=== PATIENT | male | born 1930 | race Caucasian/White ===

== ENCOUNTER → 2018-04-04 | Outpatient (CLI) | payer MEDICARE, BC | END | disposition home or self-care (01) | LOC: LABMAIN 14:20 | PROVIDERS: ATTEND Orthopaedic Surgery | DX: Z01.812 Encounter for preprocedural laboratory examination (principal); Z53.9 Procedure and treatment not carried out, unspecified reason ==

== ENCOUNTER → 2018-04-06 | Outpatient (CLI) | payer MEDICARE, BC | END | disposition home or self-care (01) | LOC: LABPAT 11:20 | PROVIDERS: ATTEND Orthopaedic Surgery | DX: Z01.812 Encounter for preprocedural laboratory examination (principal) | CPT/HCPCS: 87070 ==

== ENCOUNTER → 2018-04-09 | Outpatient (CLI) | payer MEDICARE, BC ==
[2018-04-09 11:07] LABS: Appearance,Urine Clear (Clear); Bilirubin,Urine Negative (Negative); Blood,Urine Negative (Negative); Color,Urine Yellow; Glucose,Urine (UA) Negative (Negative); Ketones,Urine Negative (Negative); Leukocyte Esterase,Urine Negative (Negative); Nitrite,Urine Negative (Negative); PH, Urine 5.5 (5.0-8.0); Protein,Urine Negative (Negative); Urobilinogen,Urine <2.0 mg/dL (<2.0)
[2018-04-09 11:08] LABS: Prothrombin Time 18.4 sec (9.0-12.0)
[2018-04-09 11:14] LABS: HCT 39.6 % (39.0-53.0); HGB 12.5 gm/dL (13.0-17.5); MCH 31.8 pg (25.0-35.0); MCHC 31.7 g/dL (31.0-37.0); MCV 100.4 fL (80.0-100.0); Macrocytosis Slight; Mean Platelet Volume 8.3; Platelet Count 200 k/uL (150-450); RBC 3.94 m/uL (4.30-5.90); RDW 14.4 % (11.5-15.5); WBC 7.1 k/uL (3.8-10.6)
[2018-04-09 11:19] LABS: Albumin 3.7 g/dL (3.5-5.0); Calcium 8.8 mg/dL (8.4-10.2); Potassium 4.4 mmol/L (3.5-5.1); Total Bilirubin 0.8 mg/dL (0.2-1.3); Total Protein 7.1 g/dL (6.3-8.2)
[2018-04-09 14:00] LABS: Partial Thromboplastin Time 30.6 sec (22.0-30.0)
== END | disposition home or self-care (01) ==
LOC: LABPAT 10:01
PROVIDERS: ATTEND Orthopaedic Surgery
DX: Z01.812 Encounter for preprocedural laboratory examination (principal)
CPT/HCPCS: 80053; 81003; 85027; 85610; 85730

== ENCOUNTER → 2018-04-09 | Outpatient (CLI) | payer MEDICARE, BC ==
--- NOTE | 2018-04-09 11:47 | XR ---
EXAMINATION TYPE: XR chest 2V DATE OF EXAM: 04/09/2018 COMPARISON: Prior chest 07/15/2016 HISTORY: Chronic systolic heart failure TECHNIQUE: Frontal and lateral views of the chest are obtained. FINDINGS: Patient is post median sternotomy and the heart remains enlarged. No evident airspace dise ase, pneumothorax. There is blunting of the posterior costophrenic sulcus and right costophrenic angl e. Thickening of the minor fissure is noted. Prominent lung volumes suggest underlying COPD. Intersti tium is mildly increased. Arthropathy noted within the shoulder on the right. IMPRESSION: Cardiomegaly is stable. Small right pleural effusion and associated atelectasis, difficu lt to exclude pulmonary venous hypertension and interstitial edema in a patient with pre-existing VP PLATFORMS D.
== END | disposition home or self-care (01) ==
LOC: RADXRMAIN 10:54
PROVIDERS: ATTEND Family Medicine
DX: J98.11 Atelectasis (principal); J90 Pleural effusion, not elsewhere classified; I51.7 Cardiomegaly; I50.22 Chronic systolic (congestive) heart failure
CPT/HCPCS: 71046

== ENCOUNTER → 2018-04-13 | Outpatient (CLI) | payer MEDICARE, BC | END | disposition home or self-care (01) | LOC: LABPAT 07:59 | PROVIDERS: ATTEND Orthopaedic Surgery | DX: Z01.812 Encounter for preprocedural laboratory examination (principal) | CPT/HCPCS: 36415; 86850; 86900; 86901 ==

== ENCOUNTER 2018-04-20 08:00 | Inpatient (IN) | payer MEDICARE, BC ==
[2018-04-07 15:18] VITALS: BMI 19.2
[~2018-04-20 08:00] MED LIST: ACETAMINOPHEN TAB 500 MG TAB PO ONE; DEXAMETHASONE SOD PHOSPHATE 10 MG/ML 1 ML VIAL IV ONE; LACTATED RINGERS 1,000 ML IV SCH; MELOXICAM 7.5 MG TAB PO ONE; MIDAZOLAM 2 MG/2 ML VIAL IV PRN; ONDANSETRON 4 MG/2 ML VIAL IVP ONE; ROPIVACAINE 246.25 MG, EPINEPHrine 0.5 MG, KETOROLAC 30 MG, cloNIDine HCL/PF 80 MCG, WA... MISCELLANE ONE; TRANEXAMIC ACID 1,000 MG in SODIUM CHLORIDE 0.9% 50 ML IVPB ONE; ceFAZolin IN SWFI 2 GM/20 ML SYRINGE IVP ONE; fentaNYL (PF) 50 MCG/ML 2 ML AMP IV PRN
[2018-04-20] MEDS ORDERED: LIDOCAINE 1% 20 ML VIAL (10MG/ML) FOR IV START INTRADERMA ONE (09:00)
[2018-04-20 09:04] LABS: INR 1.3 (<1.2); Prothrombin Time 12.7 sec (9.0-12.0)
[2018-04-20] MEDS ORDERED: DIAZEPAM 5 MG TAB PO PRN (09:25)
[2018-04-20] MEDS ORDERED: HYDROmorphone 0.5 MG/0.5 ML SYRINGE IVP PRN ×3 (09:25)
[2018-04-20] MEDS ORDERED: MAGNESIUM HYDROXIDE 2,400 MG/10 ML CUP PO PRN (09:25)
[2018-04-20] MEDS ORDERED: ONDANSETRON 4 MG/2 ML VIAL IVP PRN (09:25)
[2018-04-20] MEDS ORDERED: NALOXONE 0.4 MG/ML 1 ML VIAL IV PRN (09:25)
[2018-04-20] MEDS ORDERED: SODIUM CHLORIDE 0.9% IRRIG 1,000 ML BTL IRRIGATION ONE (10:01)
[2018-04-20] MEDS ORDERED: TRANEXAMIC ACID 1,000 MG/10 ML VIAL ONE (10:01)
[2018-04-20] MEDS ORDERED: MIDAZOLAM 2 MG/2 ML VIAL ONE (10:01)
[2018-04-20] MEDS ORDERED: PHENYLEPHRINE-0.9% NACL SYG 1 MG/10 ML SYRINGE ONE (10:01)
[2018-04-20] MEDS ORDERED: SODIUM CHLORIDE 0.9% 100 ML BAG ONE (10:01)
[2018-04-20] MEDS ORDERED: SUCCINYLCHOLINE CHLORIDE 100 MG/5 ML SYR IV ONE (10:01)
[2018-04-20] MEDS ORDERED: HEPARIN SODIUM,PORCINE 10,000 UNIT/ML 1 ML VIAL ONE (10:01)
[2018-04-20] MEDS ORDERED: fentaNYL (PF) 50 MCG/ML 2 ML AMP ONE (10:01)
[2018-04-20] MEDS ORDERED: PROPOFOL 10 MG/ML 20 ML VIAL IV ONE (10:01)
[2018-04-20] MEDS ORDERED: ceFAZolin 3,000 MG in SODIUM CHLORIDE 0.9% IRRIGATIO 3,000 ML IRRIGATION ONE (10:45)
--- NOTE | 2018-04-20 11:33 | P.OP ---
Date of Procedure: 04/20/18 Preoperative Diagnosis: Severe osteoarthritis left hip Postoperative Diagnosis: Severe osteoarthritis left hip Procedure(s) Performed: Left total hip arthroplasty with a direct anterior approach Implants: Laboy and nephew Polarstem size 4 standard Laboy [employer] Nephew R3, 3 hole acetabular shell, 54 mm [employer]oy [employer] Nephew reflection 6.5 mm cancellus screw, 20 mm 2, 25 mm [employer]oy [employer] Nephew R3, XLPE 20 acetabular liner Laboy [employer] Nephew Oxinium femoral head 36 m, +0 All components were press-fit. The articulation is Oxinium on polyethylene. Anesthesia: GETA Surgeon: Josue Amaya Director Of Managed Care #1: Jeannine Beaver Estimated Blood Loss (ml): 300 (129 mL returned with Cell Saver) Pathology: other (Femoral head) Condition: stable Disposition: PACU Indications for Procedure: After failure of conservative treatment we discussed the surgical and nonsurgical treatment options at length. Patient wishes to proceed with a total hip arthroplasty with a direct anterior approach. Complications specific to this procedure were discussed at length, including but not limited to infection, leg length discrepancy, dislocation, and nerve injury. Patient is aware of all these complications and informed consent was obtained Operative Findings: The operative findings are consistent with severe osteoarthritis of the left hip Description of Procedure: Patient was seen and evaluated in the preoperative area, consent was reviewed, and the surgical site was marked with a skin marker. Patient was then brought to the operating room and given prophylactic antibiotics intravenously. 1 g of Tranexamic acid was also given. A general anesthetic was administered by the anesthesia department. The patient was then placed on the Franklin table with the bony prominences well-padded. The hip area was then prepped and draped in usual sterile fashion. A universal timeout was then performed, which confirmed the patient's name, surgical site, ALLERGIES, and procedure being performed. Next the incision site was located at 1 cm distal and 1 cm lateral to the anterior superior iliac spine. The skin and subcutaneous tissues were sharply incised. Incision was carefully dissected down to the fascia overlying the tensor fascia gaetano muscle. This fascia was then incised in line with the incision. Next, using blunt finger dissection, the tensor fascia gaetano muscle was dissected off its investing fascia. The muscle was then carefully retracted laterally with a cobra retractor over the lateral neck of the femur. Next, the circumflex vessels were identified and cauterized using the AquaMantis device. The anterior hip capsule was then exposed. The capsule was then opened and an inverted T fashion. Cobra retractors were then placed intracapsularly. The proximal femur was then visualized. The femoral neck was then osteotomized appropriate level above the lesser trochanter. Small amount of traction was placed with the Franklin table. A small wedge of bone was then removed from the remaining femoral head. Next, using a corkscrew femoral head was easily removed from the acetabulum. On gross visual inspection, the femoral head had complete loss of articular cartilage in multiple periarticular osteophytes. Attention was then turned to the acetabulum. the acetabulum was exposed and any remaining labrum was excised. Sequential reaming of the acetabulum was performed using fluoroscopic guidance. When the appropriate size was reached, a trial was then placed. The position and fit of the trial was checked with fluoroscopy. The trial was then removed. Then, using fluoroscopic guidance, the final implant was impacted at 20 of anteversion and 40 of abduction, and fully seated in the acetabulum. 3 screws were then placed in the acetabulum. Again fluoroscopy was used to check position of the screws. Next, the liner was then impacted, with a 20 elevated liner located in the anterior superior quadrant. Component locking was confirmed. Attention was then directed to the femur. With the aid of the Franklin table, the femur was externally rotated to approximately 130, extended, and abducted under the opposite leg. A side hook was then placed under the proximal femur, and the side hook elevator was used to elevate the proximal femur. Retractors were then placed. A capsular release was performed, as well as a release of the conjoined tendon, which afforded excellent visualization of the proximal femur. Next, a box osteotome was used to lateralize the proximal femur. A coat ironer hand was then used to locate the femoral canal. Sequential broaching was then performed with appropriate size which afforded excellent fixation in the proximal femur. A trial was then placed with appropriate head and neck, and the hip was gently reduced with the aid of the Franklin table. Fluoroscopy was then used to check position of the components, as well as to ensure equal leg lengths. The hip was then gently dislocated and the trials were then removed. Final implants were then impacted and the hip was again reduced. Final fluoroscopic x-rays confirmed that the components were in anatomic position, as well as equal leg lengths. The hip was also taken through range of motion, and found to be stable. The hip was then copiously irrigated with antibiotic solution with pulsatile lavage. The hip was then irrigated with Irrisept solution. The soft tissues were then injected with a ropivacaine solution, which consisted of 246.25 mg of ropivacaine, 0.5 mg of epinephrine, 30 mg of Toradol, 80 g of clonidine, and 48.45 mL of sterile water, for a total of 100 mL of fluid injected. A second dose of 1 g of Tranexamic acid was also given. the fascia was then closed with 2-0 strata fix suture. The subcutaneous tissue was closed with 3-0 Vicryl. The subcuticular tissue was closed with 3-0 strata fix suture. The skin was then closed with Dermabond glue and a sterile silver dressing. The patient was then transferred to the recovery room in stable condition. The assistant foreman MELLY Blandon was required due to the complexity of surgery, and the need for skilled certified surgical assistant for positioning, draping, exposure, retraction, and closure of the wound.
[2018-04-20] MEDS ORDERED: LACTATED RINGERS 1,000 ML IV ONE (11:47)
--- NOTE | 2018-04-20 12:20 | XR ---
EXAMINATION TYPE: XR Hip Limited LT DATE OF EXAM: 04/20/2018 CLINICAL HISTORY: Left hip pain and osteoarthritis. TECHNIQUE: Single AP portable view of left hip is obtained immediately postoperatively. COMPARISON: None. FINDINGS: Metallic hardware from left hip arthroplasty is seen and appears satisfactory in alignment and position. There is evidence of recent surgery with subcutaneous gas noted laterally as well as s oft tissue swelling. Osseous demineralization is also seen of the left hemipelvis. Surgical clips ar e seen within the superficial inguinal region. IMPRESSION: Metallic hardware from left hip arthroplasty is satisfactory in position.
[2018-04-20] MEDS: HYDROmorphone 0.5 MG/0.5 ML SYRINGE IVP ONE ×2 (12:25→12:38)
--- NOTE | 2018-04-20 12:50 | XR ---
Limited left hip HISTORY: Anterior hip replacement 2 intraoperative C-arm images document the procedure.
--- NOTE | 2018-04-20 12:51 | FL ---
Fluoroscopy HISTORY: Hip replacement 45 seconds fluoroscopy time supplied to the referring clinician. 2 intraoperative C-arm images docum ent the procedure. See dictated report from orthopedic surgery.
[2018-04-20] MEDS: SODIUM CHLORIDE 0.9% 1,000 ML IV SCH ×2 (14:09→23:45)
[2018-04-20] MEDS: ceFAZolin IN SWFI 2 GM/20 ML SYRINGE IVP SCH (17:57)
[2018-04-20] MEDS ORDERED: WARFARIN 5 MG TAB PO ONE (18:00)
[2018-04-20] MEDS: SENNOSIDES-DOCUSATE SODIUM 1 EACH TAB PO SCH (20:56)
[2018-04-20] MEDS ORDERED: AMIODARONE 100 MG TAB PO PRN (21:42)
--- NOTE | 2018-04-20 21:45 | P.CONS ---
History of Present Illness - Reason for Consult Consult date: 04/20/18 Hanna management of hypertension and other multiple medical problems - Chief Complaint Elective left total hip arthroplasty anterior approach - History of Present Illness Patient is a 87-year-old male with a known history of coronary artery disease status post CABG several years ago, chronic atrial fibrillation on anticoagulation with Coumadin and other multiple medical problems was admitted to the hospital for left total hip arthroplasty due to worsening osteoarthritis and failed conservative management. Patient had left total hip arthroplasty anterior approach was done on 04/20/2018 Patient is fairly controlled. No complaints of chest pain or shortness of breath. No nausea vomiting or abdominal pain. Patient does have some headache but otherwise denied any complaints of dizziness or lightheadedness. No fever no chills. Review of Systems Constitutional: Patient denies any fever or chills . No generalized weakness or weight loss. Abdomen: Patient denied nausea vomiting and diarrhea and abdominal pain. Cardiovascular: Patient denies any chest pain or short of breath no palpitations. Respiratory: patient denied any cough is from production. No shortness of breath Neurologic: Patient denied any numbness or tingling headache. Musculoskeletal: Patient denies any complaints of joint swelling or deformity. Skin: Negative Psychiatric: Negative Endocrine: No heat or cold intolerance. No recent weight gain. Genitourinary: No dysuria or hematuria. All other 14 point ROS negative except the above Past Medical History Past Medical History: Atrial Fibrillation, Hyperlipidemia, Hypertension, Prostate Disorder Additional Past Medical History / Comment(s): cabrera hip pain, lower leg swelling Last Myocardial Infarction Date:: 1997 History of Any Multi-Drug Resistant Organisms: None Reported Past Surgical History: Coronary Bypass/CABG Additional Past Surgical History / Comment(s): HIP Past Anesthesia/Blood Transfusion Reactions: Motion Sickness Past Psychological History: No Psychological Hx Reported Smoking Status: Never smoker Past Alcohol Use History: None Reported Past Drug Use History: None Reported - Past Family History Sister(s) Family Medical History: Cancer Additional Family Medical History / Comment(s): breast,lung and brain Medications and Allergies Home Medications Medication Instructions Recorded Confirmed Type Amiodarone HCl [Cordarone] 100 mg PO DAILY PRN 07/15/16 04/20/18 History Ascorbic Acid [Vitamin C] 500 mg PO DAILY 07/15/16 04/20/18 History LORazepam [Ativan] 0.5 mg PO HS 07/15/16 04/20/18 History Metoprolol Succinate (ER) [Toprol 25 mg PO DAILY 07/15/16 04/20/18 History Xl] Multivitamin [Men's Multi-Vitamin] 1 tab PO DAILY 07/15/16 04/20/18 History Naphazoline HCl/Glycerin [Clear 1 drop BOTH EYES BID PRN 07/15/16 04/20/18 History Eyes Max Redness Rlf Drp] Tamsulosin HCl [Flomax] 0.4 mg PO DAILY 07/15/16 04/20/18 History Warfarin [Coumadin] 2.5 mg PO SUTUTHSA 07/15/16 04/20/18 History Warfarin [Coumadin] 3.75 mg PO MOWEFR 07/15/16 04/20/18 History Acetaminophen [Tylenol] 500 mg PO Q8H PRN 04/07/18 04/20/18 History Atorvastatin [Lipitor] 10 mg PO DAILY 04/07/18 04/20/18 History Benazepril HCl 5 mg PO HS 04/07/18 04/20/18 History Ferrous Sulfate [Feosol] 325 mg PO DAILY 04/07/18 04/20/18 History Finasteride [Proscar] 5 mg PO DAILY 04/07/18 04/20/18 History Furosemide [Lasix] 20 mg PO DAILY 04/07/18 04/20/18 History Metolazone [Zaroxolyn] 2.5 mg PO TUFR PRN 04/07/18 04/20/18 History Mirtazapine [Remeron] 15 mg PO HS 04/07/18 04/20/18 History Sennosides-Docusate Sodium 1 tab PO DAILY PRN 04/07/18 04/20/18 History [Senokot-S] traMADol HCL [Ultram] 50 mg PO Q8HR PRN 04/07/18 04/20/18 History Menthol/Zinc Oxide [Calmoseptine 1 applic TOPICAL BID 04/10/18 04/20/18 History Ointment] Allergies Allergy/AdvReac Type Severity Reaction Status Date / Time HORSE SERUM Allergy Unknown Uncoded 04/20/18 09:21 Physical Exam Vitals: Vital Signs Temp Pulse Pulse Resp BP BP Pulse Ox 04/20/18 14:45 95 16 112/69 95 07/09/18 14:30 102 H 16 113/68 98 04/20/18 14:15 104 H 16 106/66 97 04/20/18 14:00 87 16 105/64 98 04/20/18 13:45 100 16 106/70 94 L 04/20/18 13:30 105 H 16 123/81 96 04/20/18 13:15 94 16 102/69 93 L 04/20/18 13:00 102 H 16 117/80 97 04/20/18 12:50 80 16 127/64 100 04/20/18 12:45 98.1 F 113 H 16 125/65 92 L 04/20/18 12:35 82 18 136/69 100 04/20/18 12:20 100 16 161/69 100 04/20/18 12:05 98 18 118/74 99 04/20/18 11:50 97 F L 91 16 115/61 96 04/20/18 08:32 98.1 F 92 16 122/89 98 Intake and Output 04/20/18 04/20/18 04/20/18 06:59 14:59 22:59 Intake Total 1501 Output Total 300 Balance 1201 Intake: IV 1501 Output: Estimated Blood Loss 300 Other: Voiding Method Incontinent Weight 58.967 kg PHYSICAL EXAMINATION: Patient is lying in the bed comfortably, no acute distress, awake alert and oriented.. HEENT: Normocephalic. Neck is supple. Pupils reactive. Nostrils clear. Oral cavity is moist. Ears reveal no drainage. Neck reveals no JVD, carotid bruits, or thyromegaly. CHEST EXAMINATION: Trachea is central. Symmetrical expansion. Lung mederos clear to auscultation and percussion. CARDIAC: Normal S1, S2 with no gallops. Systolic murmur . Irregular rhythm ABDOMEN: Soft. Bowel sounds normal. No organomegaly. No abdominal bruits. Extremities: reveal no edema. No clubbing or cyanosis Neurologically awake, alert, oriented x3 with well-coordinated movements. No focal deficits noted Skin: No rash or skin lesions. Psychiatric: Cooperative. Nonsuicidal Musculoskeletal: No joint swelling or deformity. Normal range of motion. Results Labs: Abnormal Lab Results - Last 24 Hours (Table) 04/20/18 Range/Units 08:45 PT 12.7 H (9.0-12.0) sec INR 1.3 H (<1.2) Assessment and Plan Assessment: Left total hip arthroplasty anterior approach. On 04/20/2018 Osteoarthritis of multiple joints Atrial fibrillation chronic on anticoagulation and also history of cardiac ablation Coronary artery disease with history of CABG Hypertension Hyperlipidemia BPH Depression DVT prophylaxis Plan: Patient will be continued on pain management and bowel regimen. Incentive spirometry. Patient will be continued on amiodarone and metoprolol. We'll hold other blood pressure medications due to postoperative hypotension. Restart medications once the blood pressure is trending up. Encourage ambulation and anticoagulation is form of warfarin. We will follow up closely Further recommendations based on the clinical course. Thank you for your consult Time with Patient: Greater than 30
[2018-04-21] MEDS: ceFAZolin IN SWFI 2 GM/20 ML SYRINGE IVP SCH (01:40)
[2018-04-21 07:54] LABS: HCT 30.3 % (39.0-53.0); MCH 31.8 pg (25.0-35.0); MCHC 31.9 g/dL (31.0-37.0); MCV 99.9 fL (80.0-100.0); Macrocytosis Slight; Mean Platelet Volume 8.3; Platelet Count 193 k/uL (150-450); RBC 3.04 m/uL (4.30-5.90); RDW 14.2 % (11.5-15.5); WBC 9.6 k/uL (3.8-10.6)
[2018-04-21 07:55] LABS: INR 1.5 (<1.2)
--- NOTE | 2018-04-21 07:58 | P.PN ---
Subjective Progress Note Date: 04/21/18 This is an 87-year-old male who is status post left total hip arthroplasty. This is postoperative day #1. Patient is seen and evaluated at bedside with Dr. Josue Amaya. Patient states that his pain is under control. Patient denies any fever/chills, numbness, weakness, tingling, abdominal pain, shortness of breath or chest pain. Objective - Vital Signs Vital signs: Vital Signs Temp 98.1 F 04/21/18 00:36 Pulse 85 04/21/18 00:36 Resp 16 04/21/18 00:36 BP 107/63 04/21/18 00:36 Pulse Ox 97 04/21/18 00:36 Intake & Output 04/20/18 04/21/18 04/21/18 18:59 06:59 18:59 Intake Total 1501 Output Total 500 Balance 1001 Weight 58.967 kg 58.967 kg Intake: IV 1501 Output: Urine 200 Estimated Blood Loss 300 Other: Voiding Method Incontinent Bedside Commode Incontinent # Voids 1 1 - Exam Vital signs are stable. Patient is in no acute distress and is alert and oriented 3. Calf is soft and nontender to palpation. Dressing is clean, dry, and intact. Patient has full foot and ankle motion without pain or difficulty. Neurovascular status and circulatory status are intact. - Labs Labs: Abnormal Lab Results - Last 24 Hours (Table) 04/20/18 04/21/18 Range/Units 08:45 07:01 PT 12.7 H 14.0 H (9.0-12.0) sec INR 1.3 H 1.5 H (<1.2) Assessment and Plan (1) Primary osteoarthritis of left hip Current Visit: Yes Status: Acute Code(s): M16.12 - UNILATERAL PRIMARY OSTEOARTHRITIS, LEFT HIP SNOMED Code(s): 096469592 (2) S/P total hip arthroplasty Current Visit: Yes Status: Acute Code(s): Z96.649 - PRESENCE OF UNSPECIFIED ARTIFICIAL HIP JOINT SNOMED Code(s): 107900172465 Plan: Continue routine postop care. Continue antocoagulation. Weightbearing as tolerated with a walker Leave dressing in place for 10 days. Likely discharge to rehab on , 04/23/2018.
[2018-04-21 08:04] LABS: Calcium 8.6 mg/dL (8.4-10.2); Potassium 4.9 mmol/L (3.5-5.1)
[2018-04-21 08:09] LABS: HGB 9.7 gm/dL (13.0-17.5)
[2018-04-21 08:40] LABS: Band Neutrophils % 1 %; Lymphocytes # (M) 2.88 k/uL (1.0-4.8); Monocytes # (M) 0.48 k/uL (0-1.0); Neutrophils % (M) 64 %; Nucleated Red Blood Cells 0 /100 WBC (0-0); Poikilocytosis (M) Present; Total Cells Counted 100
[2018-04-21 08:41] LABS: Hypochromasia (M) Present
[2018-04-21] MEDS: TAMSULOSIN 0.4 MG CAP.ER.24H PO SCH (08:52)
[2018-04-21] MEDS: FINASTERIDE 5 MG TAB PO SCH (08:52)
[2018-04-21] MEDS: ATORVASTATIN 10 MG TAB PO SCH (08:52)
[2018-04-21] MEDS: MULTIVITAMINS, THERA 1 EACH TAB PO SCH (08:53)
[2018-04-21] MEDS: traMADol 50 MG TAB PO PRN ×3 (08:58→20:12)
[2018-04-21] MEDS ORDERED: METOPROLOL SUCCINATE (ER) 25 MG TAB.ER.24H PO SCH (09:00)
[2018-04-21] MEDS: METOPROLOL SUCCINATE (ER) 25 MG TAB.ER.24H PO SCH (11:12)
--- NOTE | 2018-04-21 13:26 | P.PN ---
Subjective Progress Note Date: 04/21/18 Progress note being dictated for Dr. Mcmahon Interval history: Patient is a 87-year-old male with a known history of coronary artery disease status post CABG several years ago, chronic atrial fibrillation on anticoagulation with Coumadin and other multiple medical problems was admitted to the hospital for left total hip arthroplasty due to worsening osteoarthritis and failed conservative management. Patient had left total hip arthroplasty anterior approach was done on 04/20/2018 Patient is fairly controlled. No complaints of chest pain or shortness of breath. No nausea vomiting or abdominal pain. Patient does have some headache but otherwise denied any complaints of dizziness or lightheadedness. No fever no chills. Review of Systems Constitutional: Patient denies any fever or chills . No generalized weakness or weight loss. Abdomen: Patient denied nausea vomiting and diarrhea and abdominal pain. Cardiovascular: Patient denies any chest pain or short of breath no palpitations. Respiratory: patient denied any cough is from production. No shortness of breath Neurologic: Patient denied any numbness or tingling headache. Musculoskeletal: Patient denies any complaints of joint swelling or deformity. Skin: Negative Psychiatric: Negative Endocrine: No heat or cold intolerance. No recent weight gain. Genitourinary: No dysuria or hematuria. All other 14 point ROS negative except the above 04/21/2018 sitting up in chair, ambulated with physical therapy in the hallway, tolerated exertion well. Denies lightheadedness dizziness or focal deficits. Pain controlled. No nausea or vomiting. No flatus or bowel movement. Objective - Vital Signs Vital signs: Vital Signs Temp 97.1 F L 04/21/18 07:00 Pulse 110 H 04/21/18 11:14 Resp 18 04/21/18 08:00 BP 123/58 04/21/18 11:14 Pulse Ox 97 04/21/18 00:36 Intake & Output 04/20/18 04/21/18 04/21/18 18:59 06:59 18:59 Intake Total 1501 Output Total 500 200 Balance 1001 -200 Weight 58.967 kg 58.967 kg Intake: IV 1501 Output: Urine 200 200 Estimated Blood Loss 300 Other: Voiding Method Incontinent Bedside Commode Bedside Commode Incontinent Incontinent # Voids 1 1 1 - Exam Patient is sitting up in chair comfortably, no acute distress, awake alert and oriented.. HEENT: Normocephalic. Neck is supple. Pupils reactive. Nostrils clear. Oral cavity is moist. Ears reveal no drainage. Neck reveals no JVD, carotid bruits, or thyromegaly. CHEST EXAMINATION: Trachea is central. Symmetrical expansion. Lung mederos clear to auscultation and percussion. CARDIAC: Normal S1, S2 with no gallops. Systolic murmur . Irregular rhythm ABDOMEN: Soft. Bowel sounds normal. No organomegaly. No abdominal bruits. Extremities: reveal no edema. No clubbing or cyanosis Neurologically awake, alert, oriented x3 with well-coordinated movements. No focal deficits noted Skin: No rash or skin lesions. Psychiatric: Cooperative. Nonsuicidal Musculoskeletal: No joint swelling or deformity. Normal range of motion. - Labs CBC & Chem 7: 04/21/18 07:01 04/21/18 07:01 Labs: Abnormal Lab Results - Last 24 Hours (Table) 04/21/18 04/21/18 04/21/18 Range/Units 07:01 07:01 07:01 RBC 3.04 L (4.30-5.90) m/uL Hgb 9.7 L D (13.0-17.5) gm/dL Hct 30.3 L (39.0-53.0) % PT 14.0 H (9.0-12.0) sec INR 1.5 H (<1.2) BUN 36 H (9-20) mg/dL Glucose 120 H (74-99) mg/dL Assessment and Plan Assessment: Left total hip arthroplasty anterior approach. On 04/20/2018 Osteoarthritis of multiple joints Atrial fibrillation chronic on anticoagulation and also history of cardiac ablation Coronary artery disease with history of CABG Hypertension Hyperlipidemia BPH Depression DVT prophylaxis Plan: Continue on current medication regime ,monitoring and symptomatic treatment. Maintain amiodarone and metipranolol. Currently borderline hypotensive, will hold other antihypertensives for now.Aggressive pulmonary toileting with incentive spirometer reinforced. Pain management, bowel regimen. Continue increasing ambulation as advised per orthopedics. Anticoagulated on warfarin. Subacute rehab at discharge.Further recommendations to follow. Thank you for your consult The impression and plan of care has been dictated as directed. : I performed a history and examination of this patient, discussed the same with the dictator. I agree with the dictator's note ,documented as a scribe. Any additional findings or plans will be noted.
[2018-04-21] MEDS: SODIUM CHLORIDE 0.9% 1,000 ML IV SCH (16:33)
[2018-04-21] MEDS ORDERED: WARFARIN 5 MG TAB PO ONE (18:00)
[2018-04-21] MEDS: MIRTAZAPINE 15 MG TAB PO SCH (20:10)
[2018-04-21] MEDS: SENNOSIDES-DOCUSATE SODIUM 1 EACH TAB PO SCH (20:11)
[2018-04-22] MEDS ORDERED: traMADol 50 MG TAB ONE (03:20)
[2018-04-22 07:33] LABS: INR 1.7 (<1.2); Prothrombin Time 15.5 sec (9.0-12.0)
--- NOTE | 2018-04-22 08:33 | P.PN ---
Subjective Progress Note Date: 04/22/18 This is an 87-year-old male who is status post left total hip arthroplasty. This is postoperative day #2. Patient is seen and evaluated at bedside with Dr. Josue Amaya. Patient states that he has been up and walking with physical therapy. Patient states that his pain is under control. Patient denies any new symptoms or complaints. Patient denies any fever/chills, numbness, weakness, tingling, abdominal pain, shortness of breath or chest pain. Objective - Vital Signs Vital signs: Vital Signs Temp 97.9 F 04/21/18 19:14 Pulse 89 04/21/18 19:14 Resp 18 04/21/18 19:14 BP 99/61 04/21/18 19:14 Pulse Ox 100 04/21/18 19:14 Intake & Output 04/21/18 04/22/18 04/22/18 18:59 06:59 18:59 Intake Total 0 Output Total 400 Balance -400 0 Weight 58.967 kg Intake: Intake, IV Titration 0 Amount Sodium Chloride 0.9% 1, 0 000 ml @ 65 mls/hr IV . [id number] [facility] Rx#:[id number] Output: Urine 400 Other: Voiding Method Bedside Commode Bedside Commode Incontinent Incontinent # Voids 1 1 - Exam Vital signs are stable. Patient is in no acute distress and is alert and oriented 3. Calf is soft and nontender to palpation. Dressing is clean, dry, and intact. Patient has full foot and ankle motion without pain or difficulty. Neurovascular status and circulatory status are intact. - Labs CBC & Chem 7: 04/21/18 07:01 04/21/18 07:01 Labs: Abnormal Lab Results - Last 24 Hours (Table) 04/22/18 Range/Units 07:16 PT 15.5 H (9.0-12.0) sec INR 1.7 H (<1.2) Assessment and Plan (1) Primary osteoarthritis of left hip Current Visit: Yes Status: Acute Code(s): M16.12 - UNILATERAL PRIMARY OSTEOARTHRITIS, LEFT HIP SNOMED Code(s): 174188087 (2) S/P total hip arthroplasty Current Visit: Yes Status: Acute Code(s): Z96.649 - PRESENCE OF UNSPECIFIED ARTIFICIAL HIP JOINT SNOMED Code(s): 605124230774 Plan: Continue routine postop care. Continue antocoagulation. Weightbearing as tolerated with a walker Leave dressing in place for 10 days. Likely discharge to rehab on , 04/23/2018.
[2018-04-22] MEDS: SODIUM CHLORIDE 0.9% 1,000 ML IV SCH ×2 (09:22→21:23)
[2018-04-22] MEDS: METOPROLOL SUCCINATE (ER) 25 MG TAB.ER.24H PO SCH (09:23)
[2018-04-22] MEDS: AMIODARONE 100 MG TAB PO SCH (09:23)
[2018-04-22] MEDS: ATORVASTATIN 10 MG TAB PO SCH (09:24)
[2018-04-22] MEDS: FINASTERIDE 5 MG TAB PO SCH (09:24)
[2018-04-22] MEDS: TAMSULOSIN 0.4 MG CAP.ER.24H PO SCH (09:24)
[2018-04-22] MEDS: traMADol 50 MG TAB PO PRN ×2 (11:50→17:57)
[2018-04-22] MEDS: MULTIVITAMINS, THERA 1 EACH TAB PO SCH (11:51)
--- NOTE | 2018-04-22 17:36 | P.PN ---
Subjective Progress Note Date: 04/22/18 Progress note being dictated for Dr. Mcmahon Interval history: Patient is a 87-year-old male with a known history of coronary artery disease status post CABG several years ago, chronic atrial fibrillation on anticoagulation with Coumadin and other multiple medical problems was admitted to the hospital for left total hip arthroplasty due to worsening osteoarthritis and failed conservative management. Patient had left total hip arthroplasty anterior approach was done on 04/20/2018 Patient is fairly controlled. No complaints of chest pain or shortness of breath. No nausea vomiting or abdominal pain. Patient does have some headache but otherwise denied any complaints of dizziness or lightheadedness. No fever no chills. Review of Systems Constitutional: Patient denies any fever or chills . No generalized weakness or weight loss. Abdomen: Patient denied nausea vomiting and diarrhea and abdominal pain. Cardiovascular: Patient denies any chest pain or short of breath no palpitations. Respiratory: patient denied any cough is from production. No shortness of breath Neurologic: Patient denied any numbness or tingling headache. Musculoskeletal: Patient denies any complaints of joint swelling or deformity. Skin: Negative Psychiatric: Negative Endocrine: No heat or cold intolerance. No recent weight gain. Genitourinary: No dysuria or hematuria. All other 14 point ROS negative except the above 04/21/2018 sitting up in chair, ambulated with physical therapy in the hallway, tolerated exertion well. Denies lightheadedness dizziness or focal deficits. Pain controlled. No nausea or vomiting. No flatus or bowel movement. 04/22/2018 sitting up in chair. Tolerated ambulation today with no lightheadedness dizziness or focal deficits. Pain controlled. Feels more tired today. Hemoglobin preop 12.5, postop 9.7. INR 1.7. Tachycardia resolved. Systolic blood pressure in the low 100s. Denies chest pain, palpitations or increasing shortness of breath. Passing flatus, no bowel movement. Objective - Vital Signs Vital signs: Vital Signs Temp 98.4 F 04/22/18 07:25 Pulse 91 04/22/18 07:25 Resp 16 04/22/18 07:25 BP 106/68 04/22/18 07:25 Pulse Ox 100 04/22/18 07:25 Intake & Output 04/21/18 04/22/18 04/22/18 18:59 06:59 18:59 Intake Total 0 240 Output Total 400 Balance -400 0 240 Weight 58.967 kg Intake: Intake, IV Titration 0 Amount Sodium Chloride 0.9% 1, 0 000 ml @ 65 mls/hr IV . [id number] [facility] Rx#:[id number] Oral 240 Output: Urine 400 Other: Voiding Method Bedside Commode Bedside Commode Incontinent Incontinent # Voids 1 1 - Exam Patient is sitting up in chair comfortably, no acute distress, awake alert and oriented. Tired appearing. HEENT: Normocephalic. Neck is supple. Pupils reactive. Nostrils clear. Oral cavity is moist. Neck reveals no JVD, carotid bruits, or thyromegaly. CHEST EXAMINATION: Trachea is central. Symmetrical expansion. Lung mederos clear to auscultation and percussion. CARDIAC: Normal S1, S2 with no gallops. Systolic murmur . Irregular rhythm ABDOMEN: Soft. Bowel sounds normal. No organomegaly. No abdominal bruits. Extremities: reveal no edema. No clubbing or cyanosis Neurologically awake, alert, oriented x3 with well-coordinated movements. No focal deficits noted Skin: No rash or skin lesions. Psychiatric: Cooperative. Nonsuicidal Musculoskeletal: No joint swelling or deformity. Normal range of motion. - Labs CBC & Chem 7: 04/21/18 07:01 04/21/18 07:01 Labs: Abnormal Lab Results - Last 24 Hours (Table) 04/22/18 Range/Units 07:16 PT 15.5 H (9.0-12.0) sec INR 1.7 H (<1.2) Assessment and Plan Assessment: Left total hip arthroplasty anterior approach. On 04/20/2018 Osteoarthritis of multiple joints Atrial fibrillation chronic on anticoagulation and also history of cardiac ablation Coronary artery disease with history of CABG Hypertension Hyperlipidemia BPH Depression DVT prophylaxis Anemia,post-op, expected. Plan: Continue on current medication regime ,monitoring and symptomatic treatment. F/U CBC this afternoon. Aggressive pulmonary toileting with incentive spirometer reinforced. Pain management, bowel regimen. Continue increasing ambulation as advised per orthopedics. Subacute rehab at discharge.Further recommendations to follow. Thank you for your consult The impression and plan of care has been dictated as directed. : I performed a history and examination of this patient, discussed the same with the dictator. I agree with the dictator's note ,documented as a scribe. Any additional findings or plans will be noted.
[2018-04-22] MEDS ORDERED: WARFARIN 7.5 MG TAB PO ONE (18:00)
[2018-04-22] MEDS: PANTOPRAZOLE 40 MG/10 ML VIAL IVP SCH (18:47)
[2018-04-22 19:16] LABS: Basophils % (A) 0 %; Eosinophils # (A) 0.1 k/uL (0-0.7); Eosinophils % (A) 1 %; HCT 26.1 % (39.0-53.0); HGB 8.5 gm/dL (13.0-17.5); Lymphocytes # (A) 2.5 k/uL (1.0-4.8); Lymphocytes % (A) 34 %; MCH 32.1 pg (25.0-35.0); MCHC 32.6 g/dL (31.0-37.0); MCV 98.5 fL (80.0-100.0); Mean Platelet Volume 9.1; Monocytes # (A) 0.2 k/uL (0-1.0); Monocytes % (A) 3 %; Neutrophils # (A) 4.4 k/uL (1.3-7.7); Neutrophils % (A) 59 %; Platelet Count 154 k/uL (150-450); RBC 2.65 m/uL (4.30-5.90); RDW 14.2 % (11.5-15.5); WBC 7.5 k/uL (3.8-10.6)
[2018-04-22] MEDS: SENNOSIDES-DOCUSATE SODIUM 1 EACH TAB PO SCH (21:22)
[2018-04-22] MEDS: MIRTAZAPINE 15 MG TAB PO SCH (21:23)
[2018-04-22 23:16] LABS: Glucose,Whole Blood 156 mg/dL (75-99)
[2018-04-23 07:26] LABS: Basophils % (A) 0 %; Eosinophils # (A) 0.1 k/uL (0-0.7); Eosinophils % (A) 1 %; HCT 28.5 % (39.0-53.0); HGB 9.2 gm/dL (13.0-17.5); Lymphocytes # (A) 2.9 k/uL (1.0-4.8); Lymphocytes % (A) 35 %; MCH 31.9 pg (25.0-35.0); MCHC 32.3 g/dL (31.0-37.0); MCV 98.8 fL (80.0-100.0); Mean Platelet Volume 8.9; Monocytes # (A) 0.3 k/uL (0-1.0); Monocytes % (A) 3 %; Neutrophils # (A) 4.8 k/uL (1.3-7.7); Neutrophils % (A) 57 %; Platelet Count 161 k/uL (150-450); RBC 2.89 m/uL (4.30-5.90); RDW 14.2 % (11.5-15.5); WBC 8.5 k/uL (3.8-10.6)
[2018-04-23 07:33] LABS: INR 1.8 (<1.2); Prothrombin Time 16.6 sec (9.0-12.0)
[2018-04-23] MEDS: PANTOPRAZOLE 40 MG/10 ML VIAL IVP SCH (08:24)
[2018-04-23] MEDS: AMIODARONE 100 MG TAB PO SCH (08:24)
[2018-04-23] MEDS: ATORVASTATIN 10 MG TAB PO SCH (08:24)
[2018-04-23] MEDS: FINASTERIDE 5 MG TAB PO SCH (08:24)
[2018-04-23] MEDS: METOPROLOL SUCCINATE (ER) 25 MG TAB.ER.24H PO SCH (08:25)
[2018-04-23] MEDS: TAMSULOSIN 0.4 MG CAP.ER.24H PO SCH (08:25)
--- NOTE | 2018-04-23 08:37 | P.DS ---
Providers Date of admission: 04/20/18 08:00 Expected date of discharge: 04/23/18 Attending physician: Josue Amaya Consults: 04/20/18 09:25 Consult Physician Routine Consulting Provider: Larry Foley Consult Reason/Comments: medical management and anticoagulation. Do you want consulting provider notified?: Yes 04/21/18 08:02 Consult Physician Routine Consulting Provider: Buffy Mcmahon Consult Reason/Comments: medical management Do you want consulting provider notified?: Already Contacted Primary care physician: Larry Foley - Discharge Diagnosis(es) (1) Primary osteoarthritis of left hip Current Visit: Yes Status: Acute (2) S/P total hip arthroplasty Current Visit: Yes Status: Acute Hospital Course: This is a 87-year-old male with known history of degenerative arthritis of the left hip. The patient presents for evaluation. After discussion and consideration patient elects to proceed with total hip arthroplasty. The patient is seen preoperatively by Dr. Amaya and medically cleared for surgery by their primary care physician. Patient is admitted to [facility] on 04/20/2018 for total hip arthroplasty. The procedures performed without complication or sequelae. The patient is doing well postoperatively. Labs and vital signs are stable on day of discharge. On day of discharge patient's hip incision is healing well. There is minimal erythema. There is no drainage noted at this time. There is minimal soft tissue swelling to the hip and thigh. Patient has full foot and ankle motion without difficulty or pain. Neurovascular status to the left lower extremity is intact. Patient is discharged to rehab in good condition. Please see med rec for accurate list of home medications. Plan - Discharge Summary Discharge Rx Participant: No New Discharge Prescriptions: New Sennosides [Senokot] 1 tab PO BID #60 tablet traMADol HCl [Ultram] 50 mg PO Q6H PRN #90 tab PRN Reason: Pain No Action Tamsulosin HCl [Flomax] 0.4 mg PO DAILY LORazepam [Ativan] 0.5 mg PO HS Amiodarone HCl [Cordarone] 100 mg PO DAILY PRN PRN Reason: for heart rate above 100 Metoprolol Succinate (ER) [Toprol Xl] 25 mg PO DAILY Warfarin [Coumadin] 3.75 mg PO MOWEFR Warfarin [Coumadin] 2.5 mg PO SUTUTHSA Naphazoline HCl/Glycerin [Clear Eyes Max Redness Rlf Drp] 1 drop BOTH EYES BID PRN PRN Reason: Dry Eye(S) Ascorbic Acid [Vitamin C] 500 mg PO DAILY Multivitamin [Men's Multi-Vitamin] 1 tab PO DAILY Sennosides-Docusate Sodium [Senokot-S] 1 tab PO DAILY PRN PRN Reason: Constipation Mirtazapine [Remeron] 15 mg PO HS Metolazone [Zaroxolyn] 2.5 mg PO TUFR PRN PRN Reason: weight gain of 2-5# Finasteride [Proscar] 5 mg PO DAILY Furosemide [Lasix] 20 mg PO DAILY Ferrous Sulfate [Feosol] 325 mg PO DAILY Benazepril HCl 5 mg PO HS Atorvastatin [Lipitor] 10 mg PO DAILY traMADol HCL [Ultram] 50 mg PO Q8HR PRN PRN Reason: Pain Acetaminophen [Tylenol] 500 mg PO Q8H PRN PRN Reason: Pain Menthol/Zinc Oxide [Calmoseptine Ointment] 1 applic TOPICAL BID Discharge Medication List Amiodarone HCl [Cordarone] 100 mg PO DAILY PRN 07/15/16 [History] Ascorbic Acid [Vitamin C] 500 mg PO DAILY 07/15/16 [History] LORazepam [Ativan] 0.5 mg PO HS 07/15/16 [History] Metoprolol Succinate (ER) [Toprol Xl] 25 mg PO DAILY 07/15/16 [History] Multivitamin [Men's Multi-Vitamin] 1 tab PO DAILY 07/15/16 [History] Naphazoline HCl/Glycerin [Clear Eyes Max Redness Rlf Drp] 1 drop BOTH EYES BID PRN 07/15/16 [History] Tamsulosin HCl [Flomax] 0.4 mg PO DAILY 07/15/16 [History] Warfarin [Coumadin] 2.5 mg PO SUTUTHSA 07/15/16 [History] Warfarin [Coumadin] 3.75 mg PO MOWEFR 07/15/16 [History] Acetaminophen [Tylenol] 500 mg PO Q8H PRN 04/07/18 [History] Atorvastatin [Lipitor] 10 mg PO DAILY 04/07/18 [History] Benazepril HCl 5 mg PO HS 04/07/18 [History] Ferrous Sulfate [Feosol] 325 mg PO DAILY 04/07/18 [History] Finasteride [Proscar] 5 mg PO DAILY 04/07/18 [History] Furosemide [Lasix] 20 mg PO DAILY 04/07/18 [History] Metolazone [Zaroxolyn] 2.5 mg PO TUFR PRN 04/07/18 [History] Mirtazapine [Remeron] 15 mg PO HS 04/07/18 [History] Sennosides-Docusate Sodium [Senokot-S] 1 tab PO DAILY PRN 04/07/18 [History] traMADol HCL [Ultram] 50 mg PO Q8HR PRN 04/07/18 [History] Menthol/Zinc Oxide [Calmoseptine Ointment] 1 applic TOPICAL BID 04/10/18 [ History] Sennosides [Senokot] 1 tab PO BID #60 tablet 04/23/18 [Rx] traMADol HCl [Ultram] 50 mg PO Q6H PRN #90 tab 04/23/18 [Rx] Follow up Appointment(s)/Referral(s): Josue Amaya DO [Doctor of Osteopathic Medicine] - 05/06/18 1:50 pm Larry Foley MD [Primary Care Provider] - 1 Week Activity/Diet/Wound Care/Special Instructions: Weightbearing as tolerated with walker Leave dressing intact. Dressing may be removed by home care nurse in 10 days. May shower with dressing on. Follow-up with [facility] in 2 weeks, please call with any questions or concerns [phone] Discharge Disposition: TRANSFER TO SNF/ECF
[2018-04-23] MEDS ORDERED: METOPROLOL TARTRATE 50 MG TAB PO STA (10:06)
[2018-04-23] MEDS: FUROSEMIDE 20 MG TAB PO SCH (10:22)
[2018-04-23 10:54] LABS: Calcium 8.5 mg/dL (8.4-10.2); Magnesium 2.2 mg/dL (1.6-2.3); Potassium 5.7 mmol/L (3.5-5.1)
[2018-04-23] MEDS: traMADol 50 MG TAB PO PRN ×2 (11:17→17:21)
--- NOTE | 2018-04-23 12:36 | XR ---
EXAMINATION TYPE: XR chest 1V portable DATE OF EXAM: 04/23/2018 COMPARISON: Prior chest 04/09/2018 HISTORY: Shortness of breath TECHNIQUE: Single frontal view of the chest is obtained. FINDINGS: Technique is apical lordotic. Prominent lung volumes may be indicative of underlying COPD. There is no focal air space opacity, pleural effusion, or pneumothorax seen. The cardiac silhouette size is stable and enlarged, patient is post median sternotomy. The osseous structures are intact. IMPRESSION: Stable cardiomegaly. Follow-up as indicated.
--- NOTE | 2018-04-23 14:45 | P.PN ---
Subjective Mr. Priest is a pleasant 87-year-old male past medical history significant for coronary artery disease s/p bypass grafting with HEAD-LAD that is occluded; patent OM-SVG and patent SVG-diagonal per cath 2010, chronic atrial fibrillation on shelter anticoagulation, hypertension, dyslipidemia, ischemic cardiomyopathy, severe tricuspid regurgitation and mild mitral regurgitation. He follows with Dr. Romo in the office and was seen prior to surgery for pre-operative clearance. We have been asked to see him in the post- operative phase for atrial fibrillation with rapid ventricular response and troponin elevation. He underwent an elective left hip arthroplasty 04/20/2018. He started complaining of dizziness and nausea yesterday, for this reason a troponin level was obtained and came to be elevated at 0.073. An EKG was then obtained that revealed atrial fibrillation with rapid ventricular response heart rate ranging from 120-[address] or T-wave abnormalities appreciated with non-specific septal abnormalities consistent with old infarct. Looking back he has been mildly tachycardic throughout hospitalization with hypotenson. Benazapril has been held. Currently he is on toprol 50 mg daily, amiodarone 100 mg daily and coumadin. Chest xray today reveals stable cardiomegaly with no overt heart failure or acute process. Laboratory data reviewed, hgb 9.2, plt 161, INR 1.8, potassium 5.7, sodium 135, creatinine 0.87, TSH 1.37, magnesium 2.2. Most recent echocardiogram performed in the office reveals EF 35% with mild MR and severe TR. Objective - Vital Signs Vital signs: Vital Signs Temp 98.7 F 04/23/18 14:24 Pulse 90 04/23/18 14:24 Resp 16 04/23/18 14:24 BP 92/54 04/23/18 14:24 Pulse Ox 95 04/23/18 14:24 Intake & Output 04/22/18 04/23/18 04/23/18 18:59 06:59 18:59 Intake Total 240 358 Output Total 500 Balance 240 -142 Intake: Oral 240 358 Output: Urine 500 Other: Voiding Method Toilet Toilet # Voids 2 3 2 # Bowel Movements 1 - Exam GENERAL: Well-appearing, well-nourished and in no acute distress. Frail. NECK: Supple without JVD or thyromegaly. LUNGS: Breath sounds clear to auscultation bilaterally. Respiration equal and unlabored. No wheezes, rales or rhonchi. HEART: Irregular rate and rhythm with murmur at the left sternal border, no rubs or gallops. S1 and S2 heard. EXTREMITIES: Normal range of motion, no edema. No clubbing or cyanosis. Peripheral pulses intact. - Labs CBC & Chem 7: 04/23/18 07:09 04/23/18 07:09 Labs: Abnormal Lab Results - Last 24 Hours (Table) 04/22/18 04/22/18 04/23/18 Range/Units 18:19 23:14 07:09 RBC 2.65 L 2.89 L (4.30-5.90) m/uL Hgb 8.5 L 9.2 L (13.0-17.5) gm/dL Hct 26.1 L 28.5 L (39.0-53.0) % PT (9.0-12.0) sec INR (<1.2) Sodium (137-145) mmol/L Potassium (3.5-5.1) mmol/L BUN (9-20) mg/dL Glucose (74-99) mg/dL POC Glucose (mg/dL) 156 H (75-99) mg/dL Troponin I (0.000-0.034) ng/mL 04/23/18 04/23/18 04/23/18 Range/Units 07:09 07:09 07:09 RBC (4.30-5.90) m/uL Hgb (13.0-17.5) gm/dL Hct (39.0-53.0) % PT 16.6 H (9.0-12.0) sec INR 1.8 H (<1.2) Sodium 135 L (137-145) mmol/L Potassium 5.7 H (3.5-5.1) mmol/L BUN 38 H (9-20) mg/dL Glucose 127 H (74-99) mg/dL POC Glucose (mg/dL) (75-99) mg/dL Troponin I 0.073 H* (0.000-0.034) ng/mL Assessment and Plan Assessment: ASSESSMENT Status post left hip arthroplasty Chronic persistent atrial fibrillation on long-term anticoagulation with rapid ventricular response History of coronary artery disease status post bypass grafting Ischemic cardiomyopathy Dyslipidemia Hypertension Hyperkalemia PLAN Adjust beta justin therapy to lopressor 50 mg BID from toprol. Discontinue amiodarone as he is not maintaining sinus mechanism. Apply court recording monitor. Continue to monitor for another 24 hours. Repeat potassium level. We will continue to follow. Nurse Practitioner note has been reviewed, I agree with a documented findings and plan of care. Patient was seen and examined.
--- NOTE | 2018-04-23 16:48 | P.PN ---
Subjective Progress Note Date: 04/23/18 Progress note being dictated for Dr. Mcmahon Interval history: Patient is a 87-year-old male with a known history of coronary artery disease status post CABG several years ago, chronic atrial fibrillation on anticoagulation with Coumadin and other multiple medical problems was admitted to the hospital for left total hip arthroplasty due to worsening osteoarthritis and failed conservative management. Patient had left total hip arthroplasty anterior approach was done on 04/20/2018 Patient is fairly controlled. No complaints of chest pain or shortness of breath. No nausea vomiting or abdominal pain. Patient does have some headache but otherwise denied any complaints of dizziness or lightheadedness. No fever no chills. Review of Systems Constitutional: Patient denies any fever or chills . No generalized weakness or weight loss. Abdomen: Patient denied nausea vomiting and diarrhea and abdominal pain. Cardiovascular: Patient denies any chest pain or short of breath no palpitations. Respiratory: patient denied any cough is from production. No shortness of breath Neurologic: Patient denied any numbness or tingling headache. Musculoskeletal: Patient denies any complaints of joint swelling or deformity. Skin: Negative Psychiatric: Negative Endocrine: No heat or cold intolerance. No recent weight gain. Genitourinary: No dysuria or hematuria. All other 14 point ROS negative except the above 04/21/2018 sitting up in chair, ambulated with physical therapy in the hallway, tolerated exertion well. Denies lightheadedness dizziness or focal deficits. Pain controlled. No nausea or vomiting. No flatus or bowel movement. 04/22/2018 sitting up in chair. Tolerated ambulation today with no lightheadedness dizziness or focal deficits. Pain controlled. Feels more tired today. Hemoglobin preop 12.5, postop 9.7. INR 1.7. Tachycardia resolved. Systolic blood pressure in the low 100s. Denies chest pain, palpitations or increasing shortness of breath. Passing flatus, no bowel movement. 04/23/2018 sitting up in chair, exhausted. States he has not been able to sleep the last couple of nights; he normally takes Remeron, melatonin and Ativan at night. Developed atrial fibrillation with fast ventricular rate. EKG obtained-currently unavailable. Evaluated by cardiology, Beta justin dose increased. Potassium 5.7. Troponin 0.073, magnesium 2.2. Objective - Vital Signs Vital signs: Vital Signs Temp 98.6 F 04/23/18 07:00 Pulse 107 H 04/23/18 08:00 Resp 18 04/23/18 07:00 BP 158/89 04/23/18 07:00 Pulse Ox 92 L 04/22/18 23:54 Intake & Output 04/22/18 04/23/18 04/23/18 18:59 06:59 18:59 Intake Total 240 0 Balance 240 0 Intake: Oral 240 0 Other: Voiding Method Toilet Toilet # Voids 2 3 - Exam Patient is sitting up in chair comfortably, no acute distress, awake alert and oriented. Tired appearing HEENT: Normocephalic. Neck is supple. Pupils reactive. Nostrils clear. Oral cavity is moist. Neck reveals no JVD, carotid bruits, or thyromegaly. CHEST EXAMINATION: Trachea is central. Symmetrical expansion. Lung mederos clear to auscultation and percussion. CARDIAC: Normal S1, S2 with no gallops. Systolic murmur . Irregular rhythm, tachycardic ABDOMEN: Soft. Bowel sounds normal. No organomegaly. No abdominal bruits. Extremities: reveal no edema. No clubbing or cyanosis Neurologically awake, alert, oriented x3 with well-coordinated movements. No focal deficits noted Skin: No rash or skin lesions. Psychiatric: Cooperative. Nonsuicidal Musculoskeletal: No joint swelling or deformity. Normal range of motion. - Labs CBC & Chem 7: 04/23/18 07:09 04/23/18 07:09 Labs: Abnormal Lab Results - Last 24 Hours (Table) 04/22/18 04/22/18 04/23/18 Range/Units 18:19 23:14 07:09 RBC 2.65 L 2.89 L (4.30-5.90) m/uL Hgb 8.5 L 9.2 L (13.0-17.5) gm/dL Hct 26.1 L 28.5 L (39.0-53.0) % PT (9.0-12.0) sec INR (<1.2) POC Glucose (mg/dL) 156 H (75-99) mg/dL Troponin I (0.000-0.034) ng/mL 04/23/18 04/23/18 Range/Units 07:09 07:09 RBC (4.30-5.90) m/uL Hgb (13.0-17.5) gm/dL Hct (39.0-53.0) % PT 16.6 H (9.0-12.0) sec INR 1.8 H (<1.2) POC Glucose (mg/dL) (75-99) mg/dL Troponin I 0.073 H* (0.000-0.034) ng/mL Assessment and Plan Assessment: Left total hip arthroplasty anterior approach. On 04/20/2018 Osteoarthritis of multiple joints Atrial fibrillation chronic with RVR on anticoagulation and also history of cardiac ablation Coronary artery disease with history of CABG, ischemic cardiomyopathy, EF 35%, severe tricuspid regurgitation Hypertension Hyperlipidemia BPH Depression DVT prophylaxis Anemia,post-op, expected. Hyperkalemia Malnutrition, moderate, BMI 19.2 Plan: Continue on current medication regime ,monitoring and symptomatic treatment. Beta justin dose increased, amiodarone discontinued as per cardiology. Remote telemetry. Serial troponins. Low potassium diet.Close monitoring of electrolytes with repeat labs ordered for a.m. Aggressive pulmonary toileting with incentive spirometer reinforced. Pain management, bowel regimen. Dietary supplements between meals and at bedtime, dietitian consult initiated. Continue increasing ambulation as advised per orthopedics. Subacute rehab at discharge.Further recommendations to follow. at bedside , updated on plan of care, verbalizes understanding of and agreement with. is a retired RN. Thank you for your consult The impression and plan of care has been dictated as directed. : I performed a history and examination of this patient, discussed the same with the dictator. I agree with the dictator's note ,documented as a scribe. Any additional findings or plans will be noted.
[2018-04-23] MEDS: MULTIVITAMINS, THERA 1 EACH TAB PO SCH (17:01)
--- NOTE | 2018-04-23 17:51 | ECHOF ---
Referral Reason:elevated troponin MEASUREMENTS -------- HEIGHT: 175.3 cm WEIGHT: 59.0 kg BP: 119/58 IVSd: 1.2 cm (0.6 - 1.1) LVIDd: 3.5 cm (3.9 - 5.3) LVPWd: 1.3 cm (0.6 - 1.1) IVSs: 1.2 cm LVIDs: 3.2 cm LVPWs: 1.7 cm LA Diam: 3.7 cm (2.7 - 3.8) RVIDd: 4.6 cm (< 3.3) LAESV Index (A-L): 23.62 ml/m Ao Diam: 2.9 cm (2.0 - 3.7) AV Cusp: 2.0 cm (1.5 - 2.6) EPSS: 0.3 cm RAP: 15.00 mmHg RVSP: 49.79 mmHg MV EF SLOPE: 157.41 mm/s (70 - 150) MV EXCURSION: 17.31 mm (> 18.000) FINDINGS -------- Atrial fibrillation. This was a technically adequate study. The left ventricular size is normal. There is mild concentric left ventricular hypertrophy. Overa ll left ventricular systolic function is moderate-severely impaired with, an EF between 30 - 35 %. There is evidence of paradoxical septal motion. The right ventricle is severely enlarged. Normal LA size by volume 22+/-6 ml/m2. The right atrium is moderately enlarged. There is mild aortic valve sclerosis. Mild mitral regurgitation is present. Severe tricuspid regurgitation present. There is moderate pulmonary hypertension. The right ventr icular systolic pressure, as measured by Doppler, is 49.79mmHg. Trace/mild (physiologic) pulmonic regurgitation. The aortic root size is normal. The inferior vena cava is dilated with no significant inspiratory collapse which is consistent estima willy right atrial pressure of >15 mmHg. There is no pericardial effusion. CONCLUSIONS -------- 1. Atrial fibrillation. 2. This was a technically adequate study. 3. The left ventricular size is normal. 4. There is mild concentric left ventricular hypertrophy. 5. Overall left ventricular systolic function is moderate-severely impaired with, an EF between 30 - 35 %. 6. There is evidence of paradoxical septal motion. 7. The right ventricle is severely enlarged. 8. Normal LA size by volume 22+/-6 ml/m2. 9. The right atrium is moderately enlarged. 10. There is mild aortic valve sclerosis. 11. Mild mitral regurgitation is present. 12. Severe tricuspid regurgitation present. 13. There is moderate pulmonary hypertension. 14. The right ventricular systolic pressure, as measured by Doppler, is 49.79mmHg. 15. Trace/mild (physiologic) pulmonic regurgitation. 16. The aortic root size is normal. 17. The inferior vena cava is dilated with no significant inspiratory collapse which is consistent es timated right atrial pressure of >15 mmHg. 18. There is no pericardial effusion. CASKET TRIMMER: Yudi Hughes RDCS
[2018-04-23] MEDS ORDERED: WARFARIN 10 MG TAB PO ONE (18:00)
[2018-04-23] MEDS: SODIUM CHLORIDE 0.9% 1,000 ML IV SCH (19:15)
[2018-04-23] MEDS: MELATONIN 3 MG TABLET PO SCH (22:13)
[2018-04-23] MEDS: LORazepam 0.5 MG TAB PO SCH (22:13)
[2018-04-23] MEDS: SENNOSIDES-DOCUSATE SODIUM 1 EACH TAB PO SCH (22:13)
[2018-04-23] MEDS: METOPROLOL TARTRATE 50 MG TAB PO SCH (22:13)
[2018-04-23] MEDS: MIRTAZAPINE 15 MG TAB PO SCH (22:13)
[2018-04-24] MEDS: SODIUM CHLORIDE 0.9% 1,000 ML IV SCH (03:53)
[2018-04-24 07:47] LABS: INR 3.6 (<1.2); Prothrombin Time 32.1 sec (9.0-12.0)
[2018-04-24] MEDS: traMADol 50 MG TAB PO PRN ×2 (08:03→17:19)
--- NOTE | 2018-04-24 08:43 | P.PN ---
Subjective Progress Note Date: 04/24/18 This is an 87-year-old male who is status post left total hip arthroplasty. This is postoperative day #4. Patient is seen and evaluated at bedside. Patient reports that his pain is well controlled. Patient discharge to rehab was postponed for further cardiac evaluation. Patient denies any new symptoms or complaints. Patient denies any fever/chills, numbness, weakness, tingling, abdominal pain, shortness of breath or chest pain. Objective - Vital Signs Vital signs: Vital Signs Temp 98.0 F 04/24/18 07:50 Pulse 104 H 04/24/18 07:50 Resp 16 04/24/18 07:50 BP 100/56 04/24/18 07:50 Pulse Ox 100 04/24/18 07:50 Intake & Output 04/23/18 04/24/18 04/24/18 18:59 06:59 18:59 Intake Total 358 250 Output Total 1000 Balance -642 250 Weight 58.967 kg Intake: Oral 358 250 Output: Urine 1000 Other: Voiding Method Bedside Commode # Voids 3 1 # Bowel Movements 1 - Exam Vital signs are stable. Patient is in no acute distress and is alert and oriented 3. Calf is soft and nontender to palpation. Dressing is clean, dry, and intact. Patient has full foot and ankle motion without pain or difficulty. Neurovascular status and circulatory status are intact. - Labs CBC & Chem 7: 04/23/18 07:09 04/24/18 07:16 Labs: Abnormal Lab Results - Last 24 Hours (Table) 04/23/18 04/23/18 04/24/18 Range/Units 07:09 07:09 07:23 PT 32.1 H (9.0-12.0) sec INR 3.6 H (<1.2) Sodium 135 L (137-145) mmol/L Potassium 5.7 H (3.5-5.1) mmol/L BUN 38 H (9-20) mg/dL Glucose 127 H (74-99) mg/dL Troponin I 0.073 H* (0.000-0.034) ng/mL Assessment and Plan (1) Primary osteoarthritis of left hip Current Visit: Yes Status: Acute Code(s): M16.12 - UNILATERAL PRIMARY OSTEOARTHRITIS, LEFT HIP SNOMED Code(s): 096448542 (2) S/P total hip arthroplasty Current Visit: Yes Status: Acute Code(s): Z96.649 - PRESENCE OF UNSPECIFIED ARTIFICIAL HIP JOINT SNOMED Code(s): 306943470145 Plan: Continue routine postop care. Continue antocoagulation with Coumadin. Weightbearing as tolerated with a walker Leave dressing in place for 10 days. Appreciate input from medicine and cardiology. Awaiting discharge to rehab when medically stable.
[2018-04-24] MEDS: METOPROLOL TARTRATE 50 MG TAB PO SCH ×2 (09:53→21:41)
[2018-04-24] MEDS: FINASTERIDE 5 MG TAB PO SCH (09:53)
[2018-04-24] MEDS: PANTOPRAZOLE 40 MG TABLET PO SCH (09:53)
[2018-04-24] MEDS: FUROSEMIDE 20 MG TAB PO SCH (09:53)
[2018-04-24] MEDS: ATORVASTATIN 10 MG TAB PO SCH (09:53)
[2018-04-24] MEDS: TAMSULOSIN 0.4 MG CAP.ER.24H PO SCH (09:54)
[2018-04-24] MEDS: MULTIVITAMINS, THERA 1 EACH TAB PO SCH (09:54)
--- NOTE | 2018-04-24 13:34 | P.PN ---
Subjective Mr. Priest is a pleasant 87-year-old male past medical history significant for coronary artery disease s/p bypass grafting with HEAD-LAD that is occluded; patent OM-SVG and patent SVG-diagonal per cath 2010, chronic atrial fibrillation on half-way anticoagulation, hypertension, dyslipidemia, ischemic cardiomyopathy, severe tricuspid regurgitation and mild mitral regurgitation. He follows with Dr. Romo in the office and was seen prior to surgery for pre-operative clearance. We have been asked to see him in the post- operative phase for atrial fibrillation with rapid ventricular response and troponin elevation. He underwent an elective left hip arthroplasty 04/20/2018. He started complaining of dizziness and nausea yesterday, for this reason a troponin level was obtained and came to be elevated at 0.073. An EKG was then obtained that revealed atrial fibrillation with rapid ventricular response heart rate ranging from 120-[address] or T-wave abnormalities appreciated with non-specific septal abnormalities consistent with old infarct. Looking back he has been mildly tachycardic throughout hospitalization with hypotenson. Benazapril has been held. Currently he is on toprol 50 mg daily, amiodarone 100 mg daily and coumadin. Chest xray today reveals stable cardiomegaly with no overt heart failure or acute process. Laboratory data reviewed, hgb 9.2, plt 161, INR 1.8, potassium 5.7, sodium 135, creatinine 0.87, TSH 1.37, magnesium 2.2. Most recent echocardiogram performed in the office reveals EF 35% with mild MR and severe TR. 04/24/2018 Mr. Priest is seen and examined resting comfortably in bed with at the bedside. Medication adjustments made yesterday for better heart rate control. Telemetry tracings indicated heart rate has improved in the 80-90s range. Blood pressure 100/56. Amiodarone has been discontinued and TAYO has been held since admission for hypotension. He denies chest pain, shortness of breath, palpitations or dizziness. INR today 3.6, potassium 5. Objective - Vital Signs Vital signs: Vital Signs Temp 98.0 F 04/24/18 07:50 Pulse 104 H 04/24/18 07:50 Resp 16 04/24/18 07:50 BP 100/56 04/24/18 07:50 Pulse Ox 100 04/24/18 07:50 Intake & Output 04/23/18 04/24/18 04/24/18 18:59 06:59 18:59 Intake Total 358 250 Output Total 1000 Balance -642 250 Weight 58.967 kg Intake: Oral 358 250 Output: Urine 1000 Other: Voiding Method Bedside Commode # Voids 3 1 # Bowel Movements 1 - Exam GENERAL: Well-appearing, well-nourished and in no acute distress. Frail. NECK: Supple without JVD or thyromegaly. LUNGS: Breath sounds clear to auscultation bilaterally. Respiration equal and unlabored. No wheezes, rales or rhonchi. HEART: Irregular rate and rhythm with murmur at the left sternal border, no rubs or gallops. S1 and S2 heard. EXTREMITIES: Normal range of motion, no edema. No clubbing or cyanosis. Peripheral pulses intact. - Labs CBC & Chem 7: 04/23/18 07:09 04/24/18 07:16 Labs: Abnormal Lab Results - Last 24 Hours (Table) 04/24/18 Range/Units 07:23 PT 32.1 H (9.0-12.0) sec INR 3.6 H (<1.2) Assessment and Plan Assessment: ASSESSMENT Status post left hip arthroplasty Chronic persistent atrial fibrillation on long-term anticoagulation with rapid ventricular response History of coronary artery disease status post bypass grafting Ischemic cardiomyopathy Dyslipidemia Hypertension Hyperkalemia, resolved Supra-therapeutic INR. PLAN Stable from a cardiac perspective for discharge. Hold Coumadin tonight, home dose 2.5 mg daily. Check INR in 1 week. Discontinue amiodarone. Agree with holding benazapril, can be addressed down the road as an outpatient to resume per Dr. Romo if blood pressures improve. Lopressor 50 mg BID for discharge dose. Follow up with Dr. Romo in 2 weeks. Nurse Practitioner note has been reviewed, I agree with a documented findings and plan of care. Patient was seen and examined.
--- NOTE | 2018-04-24 16:17 | P.PN ---
Subjective Progress Note Date: 04/24/18 Progress note being dictated for Dr. Mcmahon Interval history: Patient is a 87-year-old male with a known history of coronary artery disease status post CABG several years ago, chronic atrial fibrillation on anticoagulation with Coumadin and other multiple medical problems was admitted to the hospital for left total hip arthroplasty due to worsening osteoarthritis and failed conservative management. Patient had left total hip arthroplasty anterior approach was done on 04/20/2018 Patient is fairly controlled. No complaints of chest pain or shortness of breath. No nausea vomiting or abdominal pain. Patient does have some headache but otherwise denied any complaints of dizziness or lightheadedness. No fever no chills. Review of Systems Constitutional: Patient denies any fever or chills . No generalized weakness or weight loss. Abdomen: Patient denied nausea vomiting and diarrhea and abdominal pain. Cardiovascular: Patient denies any chest pain or short of breath no palpitations. Respiratory: patient denied any cough is from production. No shortness of breath Neurologic: Patient denied any numbness or tingling headache. Musculoskeletal: Patient denies any complaints of joint swelling or deformity. Skin: Negative Psychiatric: Negative Endocrine: No heat or cold intolerance. No recent weight gain. Genitourinary: No dysuria or hematuria. All other 14 point ROS negative except the above 04/21/2018 sitting up in chair, ambulated with physical therapy in the hallway, tolerated exertion well. Denies lightheadedness dizziness or focal deficits. Pain controlled. No nausea or vomiting. No flatus or bowel movement. 04/22/2018 sitting up in chair. Tolerated ambulation today with no lightheadedness dizziness or focal deficits. Pain controlled. Feels more tired today. Hemoglobin preop 12.5, postop 9.7. INR 1.7. Tachycardia resolved. Systolic blood pressure in the low 100s. Denies chest pain, palpitations or increasing shortness of breath. Passing flatus, no bowel movement. 04/23/2018 sitting up in chair, exhausted. States he has not been able to sleep the last couple of nights; he normally takes Remeron, melatonin and Ativan at night. Developed atrial fibrillation with fast ventricular rate. EKG obtained-currently unavailable. Evaluated by cardiology, Beta justin dose increased. Potassium 5.7. Troponin 0.073, magnesium 2.2. 04/24/2018 beta justin increased yesterday, significant improvement in heart rate today; A. fib with controlled ventricular rate, 80s to 90s. Hypotensive , TAYO inhibitor remains on hold. Reports better sleep last night. Ambulated with physical therapy. Diet intake remains minimal. Potassium 5. No nausea or vomiting. Pain controlled. INR 3.6. Denies chest pain, palpitations or shortness of breath Objective - Vital Signs Vital signs: Vital Signs Temp 98.0 F 04/24/18 07:50 Pulse 104 H 04/24/18 07:50 Resp 16 04/24/18 07:50 BP 100/56 04/24/18 07:50 Pulse Ox 100 04/24/18 07:50 Intake & Output 04/23/18 04/24/18 04/24/18 18:59 06:59 18:59 Intake Total 358 250 Output Total 1000 Balance -642 250 Weight 58.967 kg Intake: Oral 358 250 Output: Urine 1000 Other: Voiding Method Bedside Commode # Voids 3 1 # Bowel Movements 1 - Exam Patient is sitting up in bedcomfortably, no acute distress, awake alert and oriented. Tired appearing HEENT: Normocephalic. Neck is supple. Pupils reactive. Nostrils clear. Oral cavity is moist. Neck reveals no JVD, carotid bruits, or thyromegaly. CHEST EXAMINATION: Trachea is central. Symmetrical expansion. Lung mederos clear to auscultation and percussion. CARDIAC: Normal S1, S2 with no gallops. Systolic murmur . Irregular rhythm ABDOMEN: Soft. Bowel sounds normal. No organomegaly. No abdominal bruits. Extremities: reveal no edema. No clubbing or cyanosis Neurologically awake, alert, oriented x3 with well-coordinated movements. No focal deficits noted Skin: No rash or skin lesions. Psychiatric: Cooperative. Nonsuicidal Musculoskeletal: No joint swelling or deformity. Normal range of motion. - Labs CBC & Chem 7: 04/23/18 07:09 04/24/18 07:16 Labs: Abnormal Lab Results - Last 24 Hours (Table) 04/24/18 Range/Units 07:23 PT 32.1 H (9.0-12.0) sec INR 3.6 H (<1.2) Assessment and Plan Assessment: Left total hip arthroplasty anterior approach. On 04/20/2018 Osteoarthritis of multiple joints Atrial fibrillation chronic persistent, with RVR on anticoagulation and also history of cardiac ablation. Weight currently controlled Coronary artery disease with history of CABG, ischemic cardiomyopathy, EF 35%, severe tricuspid regurgitation Hypertension Hyperlipidemia BPH Depression DVT prophylaxis Anemia,post-op, expected. Hyperkalemia Malnutrition, moderate, BMI 19.2 Plan: Continue on current medication regime ,monitoring and symptomatic treatment. Encourage oral intake with Dietary supplements between meals and at bedtime.Maintain Low potassium diet. Serial troponins in progress.Close monitoring of electrolytes with repeat labs ordered for a.m. Aggressive pulmonary toileting with incentive spirometer reinforced. Pain management, bowel regimen. Subacute rehab at discharge.Further recommendations to follow. Thank you for your consult The impression and plan of care has been dictated as directed. : I performed a history and examination of this patient, discussed the same with the dictator. I agree with the dictator's note ,documented as a scribe. Any additional findings or plans will be noted.
[2018-04-24] MEDS ORDERED: WARFARIN 0.5 MG TAB PO ONE (18:00)
[2018-04-24] MEDS: MIRTAZAPINE 15 MG TAB PO SCH (21:41)
[2018-04-24] MEDS: LORazepam 0.5 MG TAB PO SCH (21:41)
[2018-04-24] MEDS: MELATONIN 3 MG TABLET PO SCH (21:41)
[2018-04-24] MEDS: SENNOSIDES-DOCUSATE SODIUM 1 EACH TAB PO SCH (21:42)
[2018-04-25 07:04] LABS: Basophils % (A) 0 %; Eosinophils % (A) 0 %; HCT 26.7 % (39.0-53.0); HGB 8.9 gm/dL (13.0-17.5); Lymphocytes # (A) 3.2 k/uL (1.0-4.8); Lymphocytes % (A) 28 %; MCH 33.1 pg (25.0-35.0); MCHC 33.3 g/dL (31.0-37.0); MCV 99.5 fL (80.0-100.0); Macrocytosis Slight; Monocytes # (A) 0.2 k/uL (0-1.0); Monocytes % (A) 2 %; Neutrophils # (A) 7.9 k/uL (1.3-7.7); Neutrophils % (A) 68 %; Platelet Count 187 k/uL (150-450); RBC 2.68 m/uL (4.30-5.90); WBC 11.6 k/uL (3.8-10.6)
[2018-04-25 07:13] LABS: Prothrombin Time 49.5 sec (9.0-12.0)
[2018-04-25 07:17] LABS: INR 5.5 (<1.2)
[2018-04-25 07:20] LABS: Calcium 8.4 mg/dL (8.4-10.2); Potassium 5.7 mmol/L (3.5-5.1)
[2018-04-25] MEDS: PANTOPRAZOLE 40 MG TABLET PO SCH (08:19)
[2018-04-25] MEDS: TAMSULOSIN 0.4 MG CAP.ER.24H PO SCH (08:20)
[2018-04-25] MEDS: METOPROLOL TARTRATE 50 MG TAB PO SCH (08:20)
[2018-04-25] MEDS: ATORVASTATIN 10 MG TAB PO SCH (08:20)
[2018-04-25] MEDS: FUROSEMIDE 20 MG TAB PO SCH (08:20)
[2018-04-25] MEDS: FINASTERIDE 5 MG TAB PO SCH (08:20)
--- NOTE | 2018-04-25 09:15 | P.DS ---
Providers Date of admission: 04/20/18 08:00 Expected date of discharge: 04/25/18 Attending physician: Josue Amyaa Consults: 04/20/18 09:25 Consult Physician Routine Consulting Provider: Larry Foley Consult Reason/Comments: medical management and anticoagulation. Do you want consulting provider notified?: Yes 04/21/18 08:02 Consult Physician Routine Consulting Provider: Buffy Mcmahon Consult Reason/Comments: medical management Do you want consulting provider notified?: Already Contacted 04/23/18 09:36 Consult Physician Stat Consulting Provider: Keenan Ma Consult Reason/Comments: elevated troponins Do you want consulting provider notified?: Yes Primary care physician: Larry Foley - Discharge Diagnosis(es) (1) Primary osteoarthritis of left hip Current Visit: Yes Status: Acute (2) S/P total hip arthroplasty Current Visit: Yes Status: Acute Hospital Course: This is a 87-year-old male with known history of degenerative arthritis of the left hip. The patient presents for evaluation. After discussion and consideration patient elects to proceed with total hip arthroplasty. The patient is seen preoperatively by Dr. Amaya and medically cleared for surgery by their primary care physician. Patient is admitted to [facility] on 04/20/2018 for total hip arthroplasty. The procedures performed without complication or sequelae. The patient is doing well postoperatively. Labs and vital signs are stable on day of discharge. On day of discharge patient's hip incision is healing well. There is minimal erythema. There is no drainage noted at this time. There is minimal soft tissue swelling to the hip and thigh. Patient has full foot and ankle motion without difficulty or pain. Neurovascular status to the left lower extremity is intact. Patient is discharged to rehab in good condition. Please see med rec for accurate list of home medications. Plan - Discharge Summary Discharge Rx Participant: No New Discharge Prescriptions: New Sennosides [Senokot] 1 tab PO BID #60 tablet traMADol HCl [Ultram] 50 mg PO Q6H PRN #90 tab PRN Reason: Pain No Action Tamsulosin HCl [Flomax] 0.4 mg PO DAILY LORazepam [Ativan] 0.5 mg PO HS Amiodarone HCl [Cordarone] 100 mg PO DAILY PRN PRN Reason: for heart rate above 100 Metoprolol Succinate (ER) [Toprol Xl] 25 mg PO DAILY Warfarin [Coumadin] 3.75 mg PO MOWEFR Warfarin [Coumadin] 2.5 mg PO SUTUTHSA Naphazoline HCl/Glycerin [Clear Eyes Max Redness Rlf Drp] 1 drop BOTH EYES BID PRN PRN Reason: Dry Eye(S) Ascorbic Acid [Vitamin C] 500 mg PO DAILY Multivitamin [Men's Multi-Vitamin] 1 tab PO DAILY Sennosides-Docusate Sodium [Senokot-S] 1 tab PO DAILY PRN PRN Reason: Constipation Mirtazapine [Remeron] 15 mg PO HS Metolazone [Zaroxolyn] 2.5 mg PO TUFR PRN PRN Reason: weight gain of 2-5# Finasteride [Proscar] 5 mg PO DAILY Furosemide [Lasix] 20 mg PO DAILY Ferrous Sulfate [Feosol] 325 mg PO DAILY Atorvastatin [Lipitor] 10 mg PO DAILY traMADol HCL [Ultram] 50 mg PO Q8HR PRN PRN Reason: Pain Acetaminophen [Tylenol] 500 mg PO Q8H PRN PRN Reason: Pain Menthol/Zinc Oxide [Calmoseptine Ointment] 1 applic TOPICAL BID Discharge Medication List Amiodarone HCl [Cordarone] 100 mg PO DAILY PRN 07/15/16 [History] Ascorbic Acid [Vitamin C] 500 mg PO DAILY 07/15/16 [History] LORazepam [Ativan] 0.5 mg PO HS 07/15/16 [History] Metoprolol Succinate (ER) [Toprol Xl] 25 mg PO DAILY 07/15/16 [History] Multivitamin [Men's Multi-Vitamin] 1 tab PO DAILY 07/15/16 [History] Naphazoline HCl/Glycerin [Clear Eyes Max Redness Rlf Drp] 1 drop BOTH EYES BID PRN 07/15/16 [History] Tamsulosin HCl [Flomax] 0.4 mg PO DAILY 07/15/16 [History] Warfarin [Coumadin] 2.5 mg PO SUTUTHSA 07/15/16 [History] Warfarin [Coumadin] 3.75 mg PO MOWEFR 07/15/16 [History] Acetaminophen [Tylenol] 500 mg PO Q8H PRN 04/07/18 [History] Atorvastatin [Lipitor] 10 mg PO DAILY 04/07/18 [History] Ferrous Sulfate [Feosol] 325 mg PO DAILY 04/07/18 [History] Finasteride [Proscar] 5 mg PO DAILY 04/07/18 [History] Furosemide [Lasix] 20 mg PO DAILY 04/07/18 [History] Metolazone [Zaroxolyn] 2.5 mg PO TUFR PRN 04/07/18 [History] Mirtazapine [Remeron] 15 mg PO HS 04/07/18 [History] Sennosides-Docusate Sodium [Senokot-S] 1 tab PO DAILY PRN 04/07/18 [History] traMADol HCL [Ultram] 50 mg PO Q8HR PRN 04/07/18 [History] Menthol/Zinc Oxide [Calmoseptine Ointment] 1 applic TOPICAL BID 04/10/18 [ History] Sennosides [Senokot] 1 tab PO BID #60 tablet 04/23/18 [Rx] traMADol HCl [Ultram] 50 mg PO Q6H PRN #90 tab 04/23/18 [Rx] Follow up Appointment(s)/Referral(s): Debora Romo MD [STAFF PHYSICIAN] - 2 Weeks Josue Amaya DO [Doctor of Osteopathic Medicine] - 05/06/18 1:50 pm Larry Foley MD [Primary Care Provider] - 05/05/18 1:30 pm Activity/Diet/Wound Care/Special Instructions: Weightbearing as tolerated with walker Leave dressing intact. Dressing may be removed by home care nurse in 10 days. May shower with dressing on. Follow-up with [facility] in 2 weeks, please call with any questions or concerns [phone] PT, INR daily CBC, BMP in 3 days Discharge Disposition: TRANSFER TO SNF/ECF
[2018-04-25 10:18] VITALS: BP 109/62; PULSE 110; RESP 18; TEMP 98.6
[2018-04-25] MEDS ORDERED: WARFARIN 0.5 MG TAB PO ONE (18:00)
--- NOTE | 2018-04-26 00:32 | P.PN ---
Subjective Progress Note Date: 04/25/18 Principal diagnosis: Left hip arthroplasty Interval history: Patient is a 87-year-old male with a known history of coronary artery disease status post CABG several years ago, chronic atrial fibrillation on anticoagulation with Coumadin and other multiple medical problems was admitted to the hospital for left total hip arthroplasty due to worsening osteoarthritis and failed conservative management. Patient had left total hip arthroplasty anterior approach was done on 04/20/2018 Patient is fairly controlled. No complaints of chest pain or shortness of breath. No nausea vomiting or abdominal pain. Patient does have some headache but otherwise denied any complaints of dizziness or lightheadedness. No fever no chills. 04/21/2018 sitting up in chair, ambulated with physical therapy in the hallway, tolerated exertion well. Denies lightheadedness dizziness or focal deficits. Pain controlled. No nausea or vomiting. No flatus or bowel movement. 04/22/2018 sitting up in chair. Tolerated ambulation today with no lightheadedness dizziness or focal deficits. Pain controlled. Feels more tired today. Hemoglobin preop 12.5, postop 9.7. INR 1.7. Tachycardia resolved. Systolic blood pressure in the low 100s. Denies chest pain, palpitations or increasing shortness of breath. Passing flatus, no bowel movement. 04/23/2018 sitting up in chair, exhausted. States he has not been able to sleep the last couple of nights; he normally takes Remeron, melatonin and Ativan at night. Developed atrial fibrillation with fast ventricular rate. EKG obtained-currently unavailable. Evaluated by cardiology, Beta justin dose increased. Potassium 5.7. Troponin 0.073, magnesium 2.2. 04/24/2018 beta justin increased yesterday, significant improvement in heart rate today; A. fib with controlled ventricular rate, 80s to 90s. Hypotensive , TAYO inhibitor remains on hold. Reports better sleep last night. Ambulated with physical therapy. Diet intake remains minimal. Potassium 5. No nausea or vomiting. Pain controlled. INR 3.6. Denies chest pain, palpitations or shortness of breath. 04/25/2018 Heart rate is better controlled now. Patient will be continued on metoprolol 50 mg twice a day. Amiodarone has been discontinued. TAYO inhibitor was on hold due to hypotension. Which can be started at a date. Otherwise INR is elevated and patient was advised to hold Coumadin for next 2 days and follow-up with PT/INR on Friday. Left lower extremities swelling is slightly improved. Otherwise patient is being transferred to rehab today. Discharge medication reconciliation was done. No complaints of chest pain or worsening shortness of breath. No fever no chills. No nausea vomiting or abdominal pain. All other review of systems negative except the above Current medications reviewed and reconciled. Objective - Vital Signs Vital signs: Vital Signs Temp 98.6 F 04/25/18 07:00 Pulse 110 H 04/25/18 07:00 Resp 18 04/25/18 07:00 BP 109/62 04/25/18 07:00 Pulse Ox 92 L 04/25/18 07:00 Intake & Output 04/24/18 04/25/18 04/25/18 18:59 06:59 18:59 Intake Total 660 Output Total 1025 Balance -365 Weight 58.967 kg Intake: Oral 660 Output: Urine 1025 Other: Voiding Method Bedside Commode Bedside Commode Incontinent # Voids 2 3 # Bowel Movements 1 - Exam PHYSICAL EXAMINATION: Patient is lying in the bed comfortably, no acute distress, awake alert and oriented.. HEENT: Normocephalic. Neck is supple. Pupils reactive. Nostrils clear. Oral cavity is moist. Ears reveal no drainage. Neck reveals no JVD, carotid bruits, or thyromegaly. CHEST EXAMINATION: Trachea is central. Symmetrical expansion. Bibasilar diminished breath sounds. Lung mederos clear to auscultation and percussion. CARDIAC: Normal S1, S2 with no gallops. No murmurs ABDOMEN: Soft. Bowel sounds normal. No organomegaly. No abdominal bruits. Extremities: Lower extremity 2+ edema more swollen compared to right.. No clubbing or cyanosis Neurologically awake, alert, oriented x3 with well-coordinated movements. No focal deficits noted Skin: No rash or skin lesions. Psychiatric: Cooperative. Nonsuicidal Musculoskeletal: No joint swelling or deformity. Left hip surgical site intact. Normal range of motion. - Labs CBC & Chem 7: 04/25/18 06:35 04/25/18 06:35 Labs: Abnormal Lab Results - Last 24 Hours (Table) 04/24/18 04/24/18 04/25/18 Range/Units 16:22 22:40 06:35 WBC 11.6 H (3.8-10.6) k/uL RBC 2.68 L (4.30-5.90) m/uL Hgb 8.9 L (13.0-17.5) gm/dL Hct 26.7 L (39.0-53.0) % Neutrophils # 7.9 H (1.3-7.7) k/uL PT (9.0-12.0) sec INR (<1.2) Sodium (137-145) mmol/L Potassium (3.5-5.1) mmol/L BUN (9-20) mg/dL Glucose (74-99) mg/dL Troponin I 0.056 H* 0.064 H* (0.000-0.034) ng/mL 04/25/18 04/25/18 Range/Units 06:35 06:35 WBC (3.8-10.6) k/uL RBC (4.30-5.90) m/uL Hgb (13.0-17.5) gm/dL Hct (39.0-53.0) % Neutrophils # (1.3-7.7) k/uL PT 49.5 H (9.0-12.0) sec INR 5.5 H* (<1.2) Sodium 134 L (137-145) mmol/L Potassium 5.7 H (3.5-5.1) mmol/L BUN 59 H (9-20) mg/dL Glucose 128 H (74-99) mg/dL Troponin I (0.000-0.034) ng/mL Assessment and Plan Assessment: Left total hip arthroplasty anterior approach. On 04/20/2018 Osteoarthritis of multiple joints A. fib with RVR. Rate controlled. With increased the dose of metoprolol. Atrial fibrillation chronic on anticoagulation and also history of cardiac ablation Supratherapeutic INR level Coronary artery disease with history of CABG Hypertension Hyperlipidemia BPH Depression DVT prophylaxis Plan: Patient will be continued on pain management and bowel regimen. Incentive spirometry. Patient will be continued on metoprolol. Amiodarone has been discontinued. Did hold TAYO inhibitor due to hypotension. Encourage ambulation and anticoagulation is form of warfarin. Follow with INR On Friday. Continue to hold Coumadin. We will follow up closely Further recommendations based on the clinical course. Time with Patient: Greater than 30
--- NOTE | 2018-04-27 14:33 | CDI ---
Last Revision, September 2017 Documentation Clarification Form Date: 04/27/15 1431 From: Josefina Newman RN, CCDS Admit Date: 04/20/2018 8:00:00 AM Patient Name: Sanidp Priest Visit Number: [id number] ATTENTION: The Clinical Documentation Specialists (CDI) and [facility] Coding Staff appreciate your assistance in clarifying documentation. Please respond to the clarification below the line at the bottom and electronically sign. The CDI & [facility] Coding staff will review the response and follow-up if needed. Please note: Queries are made part of the Legal Health Record. If you have any questions, please contact the author of this message via ITS. Dr. Mcmahon Post-operative Hypotension is documented in the Attending progress notes and requires further clarification History/Risk Factors: CABG, HTN, chronic Atrial fib. CAD Clinical Indicators: Patients B/P: 122/89 Labs: Hgb: 9.7/8.5/9.2 EBL 300 cc Treatment: Amiordarone and TAYO Inhibitor on hold In your professional opinion, can you please specify the etiology of the hypotension if known? Iatrogenic Hypotension Drug Induced Hypotension (please specify drugs) Postoperative Hypotension (please specify underlying cause if known and if this is an expected, unexpected, inherent or integral to the procedure.) Other Condition, please specify Unable to determine Please continue to document in your progress notes and discharge summary in order to capture severity of illness and risk of mortality. Include clinical findings that support your diagnosis. MTDD
== END 2018-04-25 13:48 | DRG 470 ==
LOC: 2ORMAIN 08:00 → 3SUR 12:30
PROVIDERS: ADMIT Orthopaedic Surgery; ATTEND Orthopaedic Surgery
PROC: 30233N0 Transfusion of Autologous Red Blood Cells into Peripheral Vein, Percutaneous Approach (ICD-10-PCS; 2018-04-20)
PROC: 0SRB06A Replacement of Left Hip Joint with Oxidized Zirconium on Polyethylene Synthetic Substitute, Uncemented, Open Approach (ICD-10-PCS; principal; 2018-04-20 09:50)
DX: M16.12 Unilateral primary osteoarthritis, left hip (principal); I50.22 Chronic systolic (congestive) heart failure; E44.0 Moderate protein-calorie malnutrition; Z68.1 Body mass index [BMI] 19.9 or less, adult; D62 Acute posthemorrhagic anemia; E44.1 Mild protein-calorie malnutrition; L89.312 Pressure ulcer of right buttock, stage 2; L89.152 Pressure ulcer of sacral region, stage 2; E87.5 Hyperkalemia; I11.0 Hypertensive heart disease with heart failure; I48.2 Chronic atrial fibrillation; I08.1 Rheumatic disorders of both mitral and tricuspid valves; I95.9 Hypotension, unspecified; E86.1 Hypovolemia; I25.5 Ischemic cardiomyopathy; E78.5 Hyperlipidemia, unspecified; I25.10 Atherosclerotic heart disease of native coronary artery without angina pectoris; N40.0 Benign prostatic hyperplasia without lower urinary tract symptoms; F32.9 Major depressive disorder, single episode, unspecified; R77.9 Abnormality of plasma protein, unspecified; I25.2 Old myocardial infarction; Z79.01 Long term (current) use of anticoagulants; Z79.899 Other long term (current) drug therapy; Z96.641 Presence of right artificial hip joint; Z95.1 Presence of aortocoronary bypass graft; Z98.42 Cataract extraction status, left eye; Z98.41 Cataract extraction status, right eye; Z85.828 Personal history of other malignant neoplasm of skin; Z88.0 Allergy status to penicillin; Z88.7 Allergy status to serum and vaccine; Z82.49 Family history of ischemic heart disease and other diseases of the circulatory system; Z82.3 Family history of stroke; Z80.1 Family history of malignant neoplasm of trachea, bronchus and lung; Z83.6 Family history of other diseases of the respiratory system; Z81.8 Family history of other mental and behavioral disorders; Z80.3 Family history of malignant neoplasm of breast; Z80.8 Family history of malignant neoplasm of other organs or systems
CPT/HCPCS: 36415; 71045; 73501; 80048; 83735; 84132; 84443; 84484; 85025; 85610; 86850; 86891; 86900; 86901; 88300; 93005; 93306; 94760

== ENCOUNTER 2018-04-25 19:53 | Inpatient (IN) | payer MEDICARE, BC ==
[2018-04-25] MEDS ORDERED: DILTIAZEM DRIP BOLUS FROM BAG 1 MG SOLN IV ONE ×2 (20:22→22:10)
--- NOTE | 2018-04-25 20:26 | ED ---
Arrhythmia/Palpitations HPI - General Source: patient, RN/MD, EMS, RN notes reviewed, old records reviewed Mode of arrival: EMS Limitations: physical limitation - History of Present Illness MD Complaint: rapid heart beat, palpitations <Javier Keith - Last Filed: 04/25/18 21:00> <AmychintanAscencion - Last Filed: 04/25/18 22:12> - General Chief Complaint: Arrhythmia/Palpitations Stated Complaint: AFIB Time Seen by Provider: 04/25/18 19:53 - History of Present Illness Initial Comments: This is a 87-year-old male who was just discharged this afternoon after having a left total hip replacement who is back today with the place of palpitations. place a chest pain fevers chills nausea vomiting sweats. [facility]. He does have edema to the left lower extremity for his . (Javier Keith) - Related Data Home Medications Medication Instructions Recorded Confirmed Ascorbic Acid [Vitamin C] 500 mg PO DAILY 07/15/16 04/20/18 Multivitamin [Men's Multi-Vitamin] 1 tab PO DAILY 07/15/16 04/20/18 Naphazoline HCl/Glycerin [Clear 1 drop BOTH EYES BID PRN 07/15/16 04/20/18 Eyes Max Redness Rlf Drp] Tamsulosin HCl [Flomax] 0.4 mg PO DAILY 07/15/16 04/20/18 Warfarin [Coumadin] 2.5 mg PO SUTUTHSA 07/15/16 04/20/18 Warfarin [Coumadin] 3.75 mg PO MOWEFR 07/15/16 04/20/18 Acetaminophen [Tylenol] 500 mg PO Q8H PRN 04/07/18 04/20/18 Atorvastatin [Lipitor] 10 mg PO DAILY 04/07/18 04/20/18 Ferrous Sulfate [Iron (65 MG 325 mg PO DAILY 04/07/18 04/20/18 Elemental)] Finasteride [Proscar] 5 mg PO DAILY 04/07/18 04/20/18 Furosemide [Lasix] 20 mg PO DAILY 04/07/18 04/20/18 Metolazone [Zaroxolyn] 2.5 mg PO TUFR PRN 04/07/18 04/20/18 Mirtazapine [Remeron] 15 mg PO HS 04/07/18 04/20/18 Menthol/Zinc Oxide [Calmoseptine 1 applic TOPICAL BID 04/10/18 04/20/18 Ointment] Previous Rx's Medication Instructions Recorded Sennosides [Senokot] 1 tab PO BID #60 tablet 04/23/18 traMADol HCl [Ultram] 50 mg PO Q6H PRN #90 tab 04/23/18 LORazepam [Ativan] 0.5 mg PO HS #7 tab 04/25/18 Metoprolol Tartrate [Lopressor] 50 mg PO BID #60 tab 04/25/18 Allergies Allergy/AdvReac Type Severity Reaction Status Date / Time HORSE SERUM Allergy Unknown Uncoded 04/25/18 20:01 Review of Systems ROS Other: All systems not noted in ROS Statement are negative. <Javier Keith - Last Filed: 04/25/18 21:00> ROS Other: All systems not noted in ROS Statement are negative. <Ascencion Odell - Last Filed: 04/25/18 22:12> ROS Statement: Those systems with pertinent positive or pertinent negative responses have been documented in the HPI. Past Medical History Past Medical History: Atrial Fibrillation, Hyperlipidemia, Hypertension, Prostate Disorder Additional Past Medical History / Comment(s): cabrera hip pain, lower leg swelling Last Myocardial Infarction Date:: 1997 History of Any Multi-Drug Resistant Organisms: None Reported Past Surgical History: Coronary Bypass/CABG, Orthopedic Surgery Additional Past Surgical History / Comment(s): HIP Past Anesthesia/Blood Transfusion Reactions: Motion Sickness Past Psychological History: No Psychological Hx Reported Smoking Status: Never smoker Past Alcohol Use History: None Reported Past Drug Use History: None Reported - Past Family History Sister(s) Family Medical History: Cancer Additional Family Medical History / Comment(s): breast,lung and brain <Javier Keith - Last Filed: 04/25/18 21:00> General Exam Limitations: physical limitation General appearance: alert, in no apparent distress Head exam: Present: atraumatic, normocephalic, normal inspection Eye exam: Present: normal appearance, PERRL, EOMI. Absent: scleral icterus, conjunctival injection, periorbital swelling ENT exam: Present: normal exam, mucous membranes moist Neck exam: Present: normal inspection. Absent: tenderness, meningismus, lymphadenopathy Respiratory exam: Present: normal lung sounds bilaterally. Absent: respiratory distress, wheezes, rales, rhonchi, stridor Cardiovascular Exam: Present: tachycardia, irregular rhythm. Absent: systolic murmur, diastolic murmur, rubs, gallop, clicks GI/Abdominal exam: Present: soft, normal bowel sounds. Absent: distended, tenderness, guarding, rebound, rigid Extremities exam: Present: normal inspection, full ROM, normal capillary refill , pedal edema (Pedal edema to the left lower extremity exam elevated leg. No calf tenderness.). Absent: tenderness, joint swelling, calf tenderness Back exam: Present: normal inspection Neurological exam: Present: alert, oriented X3, CN II-XII intact Psychiatric exam: Present: normal affect, normal mood Skin exam: Present: warm, dry, intact, normal color. Absent: rash <Javier Keith - Last Filed: 04/25/18 21:00> <Ascencion Odell - Last Filed: 04/25/18 22:12> - General Exam Comments Initial Comments: This a well-developed well-nourished alert oriented history male (Javier Keith) Course <Javier Keith - Last Filed: 04/25/18 21:00> <Ascencion Odell - Last Filed: 04/25/18 22:12> Vital Signs 04/25/18 04/25/18 04/25/18 19:56 20:59 21:01 Temperature 97.8 F Pulse Rate 137 H 121 H Pulse Rate [ 121 H Log Rider ] Respiratory 19 18 Rate Blood Pressure 133/68 121/58 O2 Sat by Pulse 91 L 97 Oximetry 04/25/18 21:34 Temperature Pulse Rate 111 H Pulse Rate [ Log Rider ] Respiratory 18 Rate Blood Pressure 103/64 O2 Sat by Pulse 96 Oximetry - Reevaluation(s) Reevaluation #1: 04/25/18 21:00 The patient's care will be endorsed to Dr. Odell at our shift change. (Javier Keith) EKG Findings - EKG Results: EKG: interpreted by [facility] (Fibrillation with a rate of 1:30 Ventricular response QRS 94 QT since QTC 288/423 incomplete right bundle-branch block nonspecific ST configuration) <Javier Keith - Last Filed: 04/25/18 21:00> Medical Decision Making - Lab Data Result diagrams: 04/25/18 20:43 <Javier Keith - Last Filed: 04/25/18 21:00> - Lab Data Result diagrams: 04/25/18 20:43 04/25/18 20:43 <Ascencion Odell - Last Filed: 04/25/18 22:12> - Lab Data Lab Results 04/25/18 04/25/18 04/25/18 Range/Units 20:43 20:43 20:43 WBC 9.7 (3.8-10.6) k/uL RBC 2.90 L (4.30-5.90) m/uL Hgb 9.2 L (13.0-17.5) gm/dL Hct 28.5 L (39.0-53.0) % MCV 98.2 (80.0-100.0) fL MCH 31.7 (25.0-35.0) pg MCHC 32.3 (31.0-37.0) g/dL RDW 15.8 H (11.5-15.5) % Plt Count 238 (150-450) k/uL Neutrophils % 58 % Lymphocytes % 36 % Monocytes % 3 % Eosinophils % 0 % Basophils % 0 % Neutrophils # 5.6 (1.3-7.7) k/uL Lymphocytes # 3.5 (1.0-4.8) k/uL Monocytes # 0.3 (0-1.0) k/uL Eosinophils # 0.0 (0-0.7) k/uL Basophils # 0.0 (0-0.2) k/uL Macrocytosis Slight PT (9.0-12.0) sec INR (<1.2) APTT (22.0-30.0) sec Sodium 132 L (137-145) mmol/L Potassium 4.2 (3.5-5.1) mmol/L Chloride 101 (98-107) mmol/L Carbon Dioxide 18 L (22-30) mmol/L Anion Gap 13 mmol/L BUN 58 H (9-20) mg/dL Creatinine 0.90 (0.66-1.25) mg/dL Est GFR (CKD-EPI)AfAm 87 (>60 ml/min/1.73 sqM) Est GFR (CKD-EPI)NonAf 75 (>60 ml/min/1.73 sqM) Glucose 127 H (74-99) mg/dL Calcium 8.1 L (8.4-10.2) mg/dL Magnesium 2.2 (1.6-2.3) mg/dL Total Bilirubin 2.7 H (0.2-1.3) mg/dL AST 45 (17-59) U/L ALT 39 (21-72) U/L Alkaline Phosphatase 181 H (38-126) U/L Total Creatine Kinase 137 (55-170) U/L CK-MB (CK-2) 0.8 (0.0-2.4) ng/mL CK-MB (CK-2) Rel Index 0.6 Troponin I 0.051 H* (0.000-0.034) ng/mL Total Protein 6.4 (6.3-8.2) g/dL Albumin 3.2 L (3.5-5.0) g/dL 04/25/18 Range/Units 20:43 WBC (3.8-10.6) k/uL RBC (4.30-5.90) m/uL Hgb (13.0-17.5) gm/dL Hct (39.0-53.0) % MCV (80.0-100.0) fL MCH (25.0-35.0) pg MCHC (31.0-37.0) g/dL RDW (11.5-15.5) % Plt Count (150-450) k/uL Neutrophils % % Lymphocytes % % Monocytes % % Eosinophils % % Basophils % % Neutrophils # (1.3-7.7) k/uL Lymphocytes # (1.0-4.8) k/uL Monocytes # (0-1.0) k/uL Eosinophils # (0-0.7) k/uL Basophils # (0-0.2) k/uL Macrocytosis PT 56.9 H (9.0-12.0) sec INR 6.2 H* (<1.2) APTT 40.5 H (22.0-30.0) sec Sodium (137-145) mmol/L Potassium (3.5-5.1) mmol/L Chloride (98-107) mmol/L Carbon Dioxide (22-30) mmol/L Anion Gap mmol/L BUN (9-20) mg/dL Creatinine (0.66-1.25) mg/dL Est GFR (CKD-EPI)AfAm (>60 ml/min/1.73 sqM) Est GFR (CKD-EPI)NonAf (>60 ml/min/1.73 sqM) Glucose (74-99) mg/dL Calcium (8.4-10.2) mg/dL Magnesium (1.6-2.3) mg/dL Total Bilirubin (0.2-1.3) mg/dL AST (17-59) U/L ALT (21-72) U/L Alkaline Phosphatase (38-126) U/L Total Creatine Kinase (55-170) U/L CK-MB (CK-2) (0.0-2.4) ng/mL CK-MB (CK-2) Rel Index Troponin I (0.000-0.034) ng/mL Total Protein (6.3-8.2) g/dL Albumin (3.5-5.0) g/dL Disposition <Javier Keith - Last Filed: 04/25/18 21:00> Is patient prescribed a controlled substance at d/c from ED?: No <Ascencion Odell - Last Filed: 04/25/18 22:12> Clinical Impression: Atrial fibrillation with rapid ventricular response, Coumadin toxicity Disposition: ADMITTED IP TO THIS HOSP Condition: Fair Referrals: Larry Foley MD [Primary Care Provider] - 1-2 days
[2018-04-25] MEDS: DILTIAZEM 50 MG in SODIUM CHLORIDE 0.9% 40 ML IV SCH (20:51)
[2018-04-25 20:59] LABS: Basophils % (A) 0 %; Eosinophils % (A) 0 %; HCT 28.5 % (39.0-53.0); HGB 9.2 gm/dL (13.0-17.5); Lymphocytes # (A) 3.5 k/uL (1.0-4.8); Lymphocytes % (A) 36 %; MCH 31.7 pg (25.0-35.0); MCHC 32.3 g/dL (31.0-37.0); MCV 98.2 fL (80.0-100.0); Macrocytosis Slight; Monocytes # (A) 0.3 k/uL (0-1.0); Monocytes % (A) 3 %; Neutrophils # (A) 5.6 k/uL (1.3-7.7); Neutrophils % (A) 58 %; Platelet Count 238 k/uL (150-450); RDW 15.8 % (11.5-15.5); WBC 9.7 k/uL (3.8-10.6)
[2018-04-25 21:13] LABS: Partial Thromboplastin Time 40.5 sec (22.0-30.0); Prothrombin Time 56.9 sec (9.0-12.0)
[2018-04-25 21:14] LABS: Albumin 3.2 g/dL (3.5-5.0); Calcium 8.1 mg/dL (8.4-10.2); Magnesium 2.2 mg/dL (1.6-2.3); Potassium 4.2 mmol/L (3.5-5.1); Total Bilirubin 2.7 mg/dL (0.2-1.3); Total Protein 6.4 g/dL (6.3-8.2)
--- NOTE | 2018-04-25 21:19 | XR ---
EXAMINATION TYPE: XR chest 2V DATE OF EXAM: 04/25/2018 COMPARISON: Chest x-ray from 2 days earlier. HISTORY: Dysrhythmia TECHNIQUE: Frontal and lateral views of the chest are obtained. FINDINGS: There is chronic parenchymal change with new left basilar opacity felt to reflect small le ft pleural effusion and associated left basilar atelectasis and/or infiltrate. The cardiac silhouett e size remains enlarged with prominent right heart border redemonstrated. Overlying sternal wires and mediastinal clips are present The osseous structures are demineralized. IMPRESSION: Chronic changes and cardiomegaly with new small left pleural effusion and associated lef t basilar atelectasis and/or infiltrate.
[2018-04-25 21:25] LABS: INR 6.2 (<1.2)
[2018-04-25 21:40] LABS: Creatine Kinase MB 0.8 ng/mL (0.0-2.4)
[2018-04-25 21:44] LABS: Troponin I 0.051 ng/mL (0.000-0.034)
[2018-04-25] MEDS ORDERED: SODIUM CHLORIDE 0.9% 500 ML IV STA (22:01)
[2018-04-25] MEDS ORDERED: NITROGLYCERIN SL TABS 0.4 MG TAB SUBLINGUAL PRN (22:05)
[2018-04-25] MEDS ORDERED: traMADol 50 MG TAB PO PRN (22:08)
[2018-04-25] MEDS ORDERED: METOLAZONE 2.5 MG TAB PO PRN (22:08)
[2018-04-25] MEDS ORDERED: ARTIFICIAL TEARS-HYPROMELLOSE DROPS 15 ML BTL BOTH EYES PRN (22:08)
[2018-04-25] MEDS ORDERED: ACETAMINOPHEN TAB 500 MG TAB PO PRN (22:08)
[2018-04-26] MEDS ORDERED: PHYTONADIONE ORAL 5 MG/5 ML ORAL.SYRG PO STA (00:19)
[2018-04-26] MEDS: MIRTAZAPINE 15 MG TAB PO SCH ×2 (00:53→21:19)
[2018-04-26] MEDS: LORazepam 0.5 MG TAB PO SCH ×2 (00:53→21:19)
[2018-04-26] MEDS: DILTIAZEM 50 MG in SODIUM CHLORIDE 0.9% 40 ML IV SCH ×2 (01:25→17:20)
[2018-04-26 03:32] LABS: Creatine Kinase MB 0.6 ng/mL (0.0-2.4)
[2018-04-26 03:45] LABS: Troponin I 0.064 ng/mL (0.000-0.034)
[2018-04-26] MEDS ORDERED: METOPROLOL TARTRATE 50 MG TAB PO SCH (09:00)
[2018-04-26 09:15] LABS: INR 3.9 (<1.2); Prothrombin Time 35.1 sec (9.0-12.0)
[2018-04-26 09:23] LABS: Cholesterol 52 mg/dL (<200); HDL Cholesterol 20 mg/dL (40-60); LDL Cholesterol,Calculated 21 mg/dL (0-99); Triglycerides 53 mg/dL (<150)
--- NOTE | 2018-04-26 09:27 | P.CRDCN ---
History of Present Illness Consult date: 04/26/18 Chief complaint: Feeling weak History of present illness: This is a pleasant 87-year-old gentleman with a past medical history significant for coronary artery disease and prior coronary artery that is grafting, chronic atrial fibrillation on oral anticoagulation with Coumadin, as well as history of CHF, was discharged from the hospital yesterday after he was admitted with hip fracture and underwent left hip surgery. He was discharged in stable medical condition. He presented to the hospital because he was not feeling well. He just felt weak. No specific symptoms of chest pain or chest discomfort, dizziness or lightheadedness, heart racing or heart fluttering, or syncope. In the ER the patient was found to be in A. fib with RVR and he was admitted for further evaluation and management. He continues to be in atrial fibrillation with heart rate around 130 bpm. He is on Cardizem at 5 mg per hour. The INR when he presented to the hospital was around 6 and without have an INR from today. Currently the Coumadin is on hold. When he was admitted to the hospital for the left hip surgery underwent an echocardiogram and that revealed severe cardiomyopathy with an ejection fraction around 35% with severe tricuspid regurgitation and moderate pulmonary hypertension. I am going to increase the dose of metoprolol to 50 mg by mouth 3 times a day. Try to wean him from the Cardizem drip. Continue holding the Coumadin and obtain an INR from today. We'll continue following up with the patient. Past Medical History Past Medical History: Atrial Fibrillation, Hyperlipidemia, Hypertension, Prostate Disorder Additional Past Medical History / Comment(s): cabrera hip pain, lower leg swelling Last Myocardial Infarction Date:: 1997 History of Any Multi-Drug Resistant Organisms: None Reported Past Surgical History: Coronary Bypass/CABG, Orthopedic Surgery Additional Past Surgical History / Comment(s): HIP Past Anesthesia/Blood Transfusion Reactions: Motion Sickness Past Psychological History: No Psychological Hx Reported Smoking Status: Never smoker Past Alcohol Use History: None Reported Past Drug Use History: None Reported - Past Family History Sister(s) Family Medical History: Cancer Additional Family Medical History / Comment(s): breast,lung and brain Medications and Allergies Home Medications Medication Instructions Recorded Confirmed Type Ascorbic Acid [Vitamin C] 500 mg PO DAILY 07/15/16 04/26/18 History Multivitamin [Men's Multi-Vitamin] 1 tab PO DAILY 07/15/16 04/26/18 History Naphazoline HCl/Glycerin [Clear 1 drop BOTH EYES BID PRN 07/15/16 04/26/18 History Eyes Max Redness Rlf Drp] Tamsulosin HCl [Flomax] 0.4 mg PO DAILY 07/15/16 04/26/18 History Warfarin [Coumadin] 2.5 mg PO SUTUTHSA 07/15/16 04/26/18 History Warfarin [Coumadin] 3.75 mg PO MOWEFR 07/15/16 04/26/18 History Acetaminophen [Tylenol] 500 mg PO Q8H PRN 04/07/18 04/26/18 History Atorvastatin [Lipitor] 10 mg PO DAILY 04/07/18 04/26/18 History Ferrous Sulfate [Iron (65 MG 325 mg PO DAILY 04/07/18 04/26/18 History Elemental)] Finasteride [Proscar] 5 mg PO DAILY 04/07/18 04/26/18 History Furosemide [Lasix] 20 mg PO DAILY 04/07/18 04/26/18 History Metolazone [Zaroxolyn] 2.5 mg PO TUFR PRN 04/07/18 04/26/18 History Mirtazapine [Remeron] 15 mg PO HS 04/07/18 04/26/18 History Menthol/Zinc Oxide [Calmoseptine 1 applic TOPICAL BID 04/10/18 04/26/18 History Ointment] Sennosides [Senokot] 1 tab PO BID #60 tablet 04/23/18 04/26/18 Rx traMADol HCl [Ultram] 50 mg PO Q6H PRN #90 tab 04/23/18 04/26/18 Rx LORazepam [Ativan] 0.5 mg PO HS #7 tab 04/25/18 04/26/18 Rx Metoprolol Tartrate [Lopressor] 50 mg PO BID #60 tab 04/26/18 Rx Allergies Allergy/AdvReac Type Severity Reaction Status Date / Time HORSE SERUM Allergy Unknown Uncoded 04/25/18 20:01 Physical Exam Vitals: Vital Signs Temp Pulse Pulse Pulse Resp BP BP 04/26/18 03:30 98.3 F 116 H 18 127/62 04/25/18 23:31 98.7 F 109 H 16 101/58 04/25/18 22:45 98.7 F 109 H 18 101/58 04/25/18 22:38 97.6 F 120 H 18 109/76 04/25/18 21:34 111 H 18 103/64 04/25/18 21:01 121 H 18 121/58 04/25/18 20:59 121 H 04/25/18 19:56 97.8 F 137 H 19 133/68 Pulse Ox 04/26/18 03:30 96 04/25/18 23:31 95 04/25/18 22:45 95 04/25/18 22:38 96 04/25/18 21:34 96 04/25/18 21:01 97 04/25/18 20:59 04/25/18 19:56 91 L Intake and Output 04/25/18 04/26/18 04/26/18 22:59 06:59 14:59 Intake Total 22.833 120 Balance 22.833 120 Intake: Intake, IV Titration 22.833 Amount Diltiazem 50 mg In Sodium 22.833 Chloride 0.9% 40 ml @ 5 MG/HR 5 mls/hr IV .Q10H [facility] Rx#:[id number] Oral 120 Other: # Voids 1 # Bowel Movements 1 Weight 57.153 kg 59.3 kg - Constitutional General appearance: no acute distress - Respiratory Respiratory: bilateral: CTA - Cardiovascular Rhythm: irregularly irregular Heart sounds: normal: S1, S2 Abnormal Heart Sounds: systolic murmur Results 04/25/18 20:43 04/25/18 20:43 Cardiac Enzymes 04/25/18 04/25/18 04/26/18 Range/Units 20:43 20:43 02:40 AST 45 (17-59) U/L CK-MB (CK-2) 0.8 0.6 (0.0-2.4) ng/mL Troponin I 0.051 H* 0.064 H* (0.000-0.034) ng/mL Coagulation 04/25/18 04/26/18 Range/Units 20:43 08:30 PT 56.9 H 35.1 H (9.0-12.0) sec APTT 40.5 H (22.0-30.0) sec CBC 04/25/18 Range/Units 20:43 WBC 9.7 (3.8-10.6) k/uL RBC 2.90 L (4.30-5.90) m/uL Hgb 9.2 L (13.0-17.5) gm/dL Hct 28.5 L (39.0-53.0) % Plt Count 238 (150-450) k/uL Comprehensive Metabolic Panel 04/25/18 Range/Units 20:43 Sodium 132 L (137-145) mmol/L Potassium 4.2 (3.5-5.1) mmol/L Chloride 101 (98-107) mmol/L Carbon Dioxide 18 L (22-30) mmol/L BUN 58 H (9-20) mg/dL Creatinine 0.90 (0.66-1.25) mg/dL Glucose 127 H (74-99) mg/dL Calcium 8.1 L (8.4-10.2) mg/dL AST 45 (17-59) U/L ALT 39 (21-72) U/L Alkaline Phosphatase 181 H (38-126) U/L Total Protein 6.4 (6.3-8.2) g/dL Albumin 3.2 L (3.5-5.0) g/dL Current Medications Generic Name Dose Route Start Last Admin Trade Name Freq PRN Reason Stop Dose Admin Acetaminophen 500 mg 04/25/18 22:08 Tylenol Tab PO Q8H PRN Pain Artificial Tears 1 drops 04/25/18 22:08 Artificial Tear Drops BOTH EYES BID PRN Dry Eye(s) Aspirin 325 mg 04/26/18 09:00 Aspirin PO DAILY [facility] Atorvastatin Calcium 10 mg 04/26/18 09:00 Lipitor PO DAILY [facility] Calamine/Phenol 1 applic 04/26/18 09:00 Risamine Oint TOPICAL BID [facility] Ferrous Sulfate 325 mg 04/26/18 09:00 Feosol PO DAILY [facility] Finasteride 5 mg 04/26/18 09:00 Proscar PO DAILY [facility] Furosemide 20 mg 04/26/18 09:00 Lasix PO DAILY [facility] Diltiazem HCl 50 mg/ Sodium 50 mls @ 5 mls/hr 04/25/18 20:30 04/26/18 01:25 Chloride IV 5 mg/hr .Q10H [facility] 5 mls/hr Administration 5 MG/HR Lorazepam 0.5 mg 04/25/18 23:00 04/26/18 00:53 Ativan PO 0.5 mg HS [facility] Administration Metolazone 2.5 mg 04/25/18 22:08 Zaroxolyn PO TUFR PRN weight gain of 2-5# Metoprolol Tartrate 50 mg 04/26/18 16:00 Lopressor PO TID [facility] Mirtazapine 15 mg 04/25/18 23:00 04/26/18 00:53 Remeron PO 15 mg HS [facility] Administration Multivitamins 1 each 04/26/18 12:00 Theragran PO DAILY@1200 [facility] Nitroglycerin 0.4 mg 04/25/18 22:05 Nitrostat SUBLINGUAL Q5M PRN Chest Pain Senna 8.6 mg 04/26/18 09:00 Senokot PO BID [facility] Tamsulosin HCl 0.4 mg 04/26/18 09:00 Flomax PO DAILY [facility] Tramadol HCl 50 mg 04/25/18 22:08 Ultram PO Q6H PRN Pain Intake and Output 04/25/18 04/26/18 04/26/18 22:59 06:59 14:59 Intake Total 22.833 120 Balance 22.833 120 Intake: Intake, IV Titration 22.833 Amount Diltiazem 50 mg In Sodium 22.833 Chloride 0.9% 40 ml @ 5 MG/HR 5 mls/hr IV .Q10H [facility] Rx#:[id number] Oral 120 Other: # Voids 1 # Bowel Movements 1 Weight 57.153 kg 59.3 kg 04/25/18 20:43 04/25/18 20:43 Assessment and Plan Assessment: Assessment #1 A. fib with RVR. #2 known chronic atrial fibrillation #3 CAD and status post CABG #4 severe ischemic cardiomyopathy #5 multiple comorbid conditions Plan #1 increase the dose of metoprolol to 50 mg by mouth 3 times a day #2 the right wean the patient from the Cardizem drip #3 obtain an INR from today. Continue holding the Coumadin in view of the supratherapeutic INR yesterday #4 follow-up with the patient.
[2018-04-26] MEDS: FUROSEMIDE 20 MG TAB PO SCH (09:29)
[2018-04-26] MEDS: ATORVASTATIN 10 MG TAB PO SCH (09:29)
[2018-04-26] MEDS: ASPIRIN 325 MG TAB PO SCH (09:29)
[2018-04-26] MEDS: METOPROLOL TARTRATE 50 MG TAB PO SCH ×3 (09:30→21:50)
[2018-04-26] MEDS: SENNOSIDES 8.6 MG TAB PO SCH ×2 (09:30→21:19)
[2018-04-26] MEDS: FINASTERIDE 5 MG TAB PO SCH (09:30)
[2018-04-26] MEDS: TAMSULOSIN 0.4 MG CAP.ER.24H PO SCH (09:30)
[2018-04-26] MEDS: FERROUS SULFATE 325 MG TAB PO SCH (09:30)
[2018-04-26 09:41] LABS: Creatine Kinase MB 0.5 ng/mL (0.0-2.4)
[2018-04-26 09:51] LABS: Troponin I 0.053 ng/mL (0.000-0.034)
[2018-04-26] MEDS: MULTIVITAMINS, THERA 1 EACH TAB PO SCH (12:35)
--- NOTE | 2018-04-26 13:31 | P.HPIM ---
History of Present Illness H&P Date: 04/26/18 Chief Complaint: A. fib with RVR Patient is a 87-year-old male with a known history of coronary artery disease status post CABG, chronic atrial fibrillation on anticoagulation with Coumadin and CHF with ejection fraction 30-35% as per echocardiogram done on 04/23/2018 and with severe tricuspid regurgitation and moderate pulmonary hypertension was discharged from hospital on 04/25/2018 after left total hip arthroplasty. Patient was discharged to infection care facility. Patient also found have supratherapeutic INR level. Upon reaching the facility patient was found to have tachycardia in the patient had EKG done in the ER showed A. fib with RVR with heart rate greater than 1:30. Patient was started on Cardizem drip. Patient was placed on increased dose of metoprolol 50 mg twice a day during previous admission. INR was also elevated at 6.1. Currently heart rate is better controlled now. Cardiology was consulted. Patient was also complaining of left lower extremity swelling which is improved now. Chest x-ray showed chronic changes and cardiomegaly with new small pleural effusion and associated left basilar atelectasis and infiltrate. Troponin 0.051 Review of Systems Constitutional: Patient denies any fever or chills . No generalized weakness or weight loss. Abdomen: Patient denied nausea vomiting and diarrhea and abdominal pain. Cardiovascular: Patient denies any chest pain or short of breath no palpitations. Respiratory: patient denied any cough is from production. No shortness of breath Neurologic: Patient denied any numbness or tingling headache. Musculoskeletal: Patient denies any complaints of joint swelling or deformity. Skin: Negative Psychiatric: Negative Endocrine: No heat or cold intolerance. No recent weight gain. Genitourinary: No dysuria or hematuria. All other 14 point ROS negative except the above Past Medical History Past Medical History: Atrial Fibrillation, Hyperlipidemia, Hypertension, Prostate Disorder Additional Past Medical History / Comment(s): cabrera hip pain, lower leg swelling Last Myocardial Infarction Date:: 1997 History of Any Multi-Drug Resistant Organisms: None Reported Past Surgical History: Coronary Bypass/CABG, Orthopedic Surgery Additional Past Surgical History / Comment(s): HIP Past Anesthesia/Blood Transfusion Reactions: Motion Sickness Past Psychological History: No Psychological Hx Reported Smoking Status: Never smoker Past Alcohol Use History: None Reported Past Drug Use History: None Reported - Past Family History Sister(s) Family Medical History: Cancer Additional Family Medical History / Comment(s): breast,lung and brain Medications and Allergies Home Medications Medication Instructions Recorded Confirmed Type RX: Ascorbic Acid [Vitamin C] 500 mg PO DAILY 07/15/16 04/26/18 History RX: Multivitamin [Men's 1 tab PO DAILY 07/15/16 04/26/18 History Multi-Vitamin] RX: Naphazoline HCl/Glycerin 1 drop BOTH EYES BID PRN 07/15/16 04/26/18 History [Clear Eyes Max Redness Rlf Drp] RX: Tamsulosin HCl [Flomax] 0.4 mg PO DAILY 07/15/16 04/26/18 History RX: Warfarin [Coumadin] 2.5 mg PO SUTUTHSA 07/15/16 04/26/18 History RX: Warfarin [Coumadin] 3.75 mg PO MOWEFR 07/15/16 04/26/18 History RX: Acetaminophen [Tylenol] 500 mg PO Q8H PRN 04/07/18 04/26/18 History RX: Atorvastatin [Lipitor] 10 mg PO DAILY 04/07/18 04/26/18 History RX: Ferrous Sulfate [Iron (65 MG 325 mg PO DAILY 04/07/18 04/26/18 History Elemental)] RX: Finasteride [Proscar] 5 mg PO DAILY 04/07/18 04/26/18 History RX: Furosemide [Lasix] 20 mg PO DAILY 04/07/18 04/26/18 History RX: Metolazone [Zaroxolyn] 2.5 mg PO TUFR PRN 04/07/18 04/26/18 History RX: Mirtazapine [Remeron] 15 mg PO HS 04/07/18 04/26/18 History RX: Menthol/Zinc Oxide 1 applic TOPICAL BID 04/10/18 04/26/18 History [Calmoseptine Ointment] RX: traMADol HCl [Ultram] 50 mg PO Q6H PRN #90 tab 04/23/18 04/26/18 Rx Sennosides [Senokot] 1 tab PO BID #60 tablet 04/23/18 04/26/18 Rx RX: LORazepam [Ativan] 0.5 mg PO HS #7 tab 04/25/18 04/26/18 Rx RX: Metoprolol Tartrate [Lopressor] 50 mg PO BID #60 tab 04/26/18 Rx Allergies Allergy/AdvReac Type Severity Reaction Status Date / Time HORSE SERUM Allergy Unknown Uncoded 04/25/18 20:01 Physical Exam Vitals: Vital Signs Temp Pulse Pulse Pulse Resp BP BP 04/26/18 03:30 98.3 F 116 H 18 127/62 04/25/18 23:31 98.7 F 109 H 16 101/58 04/25/18 22:45 98.7 F 109 H 18 101/58 04/25/18 22:38 97.6 F 120 H 18 109/76 04/25/18 21:34 111 H 18 103/64 04/25/18 21:01 121 H 18 121/58 04/25/18 20:59 121 H 04/25/18 19:56 97.8 F 137 H 19 133/68 Pulse Ox 04/26/18 03:30 96 04/25/18 23:31 95 04/25/18 22:45 95 04/25/18 22:38 96 04/25/18 21:34 96 04/25/18 21:01 97 04/25/18 20:59 04/25/18 19:56 91 L Intake and Output 04/25/18 04/26/18 04/26/18 22:59 06:59 14:59 Intake Total 22.833 120 Balance 22.833 120 Intake: Intake, IV Titration 22.833 Amount Diltiazem 50 mg In Sodium 22.833 Chloride 0.9% 40 ml @ 5 MG/HR 5 mls/hr IV .Q10H [facility] Rx#:[id number] Oral 120 Other: # Voids 1 # Bowel Movements 1 Weight 57.153 kg 59.3 kg PHYSICAL EXAMINATION: Patient is lying in the bed comfortably, no acute distress, awake alert and oriented.. HEENT: Normocephalic. Neck is supple. Pupils reactive. Nostrils clear. Oral cavity is moist. Ears reveal no drainage. Neck reveals no JVD, carotid bruits, or thyromegaly. CHEST EXAMINATION: Trachea is central. Symmetrical expansion. Left basilar crackles. Lung mederos clear to auscultation and percussion. CARDIAC: Normal S1, S2 with no gallops. No murmurs ABDOMEN: Soft. Bowel sounds normal. No organomegaly. No abdominal bruits. Extremities: 1+ edema. Left lower extremity swelling improved. No clubbing or cyanosis Neurologically awake, alert, oriented x2-3 with well-coordinated movements. Underlying cognitive impairment. No focal deficits noted Skin: No rash or skin lesions. Psychiatric: Coperative. Nonsuicidal Musculoskeletal: No joint swelling or deformity. Left hip surgical site intact. Normal range of motion. Results CBC & Chem 7: 04/25/18 20:43 04/25/18 20:43 Labs: Abnormal Lab Results - Last 24 Hours (Table) 04/25/18 04/25/18 04/25/18 Range/Units 20:43 20:43 20:43 RBC 2.90 L (4.30-5.90) m/uL Hgb 9.2 L (13.0-17.5) gm/dL Hct 28.5 L (39.0-53.0) % RDW 15.8 H (11.5-15.5) % PT (9.0-12.0) sec INR (<1.2) APTT (22.0-30.0) sec Sodium 132 L (137-145) mmol/L Carbon Dioxide 18 L (22-30) mmol/L BUN 58 H (9-20) mg/dL Glucose 127 H (74-99) mg/dL Calcium 8.1 L (8.4-10.2) mg/dL Total Bilirubin 2.7 H (0.2-1.3) mg/dL Alkaline Phosphatase 181 H (38-126) U/L Troponin I 0.051 H* (0.000-0.034) ng/mL Albumin 3.2 L (3.5-5.0) g/dL 04/25/18 04/26/18 04/26/18 Range/Units 20:43 02:40 08:30 RBC (4.30-5.90) m/uL Hgb (13.0-17.5) gm/dL Hct (39.0-53.0) % RDW (11.5-15.5) % PT 56.9 H 35.1 H (9.0-12.0) sec INR 6.2 H* 3.9 H (<1.2) APTT 40.5 H (22.0-30.0) sec Sodium (137-145) mmol/L Carbon Dioxide (22-30) mmol/L BUN (9-20) mg/dL Glucose (74-99) mg/dL Calcium (8.4-10.2) mg/dL Total Bilirubin (0.2-1.3) mg/dL Alkaline Phosphatase (38-126) U/L Troponin I 0.064 H* (0.000-0.034) ng/mL Albumin (3.5-5.0) g/dL Thrombosis Risk Factor Assmnt - Choose All That Apply Each Factor Represents 1 point: Swollen legs (current) Each Risk Factor Represents 3 Points: Age 75 years or older Thrombosis Risk Factor Assessment Total Risk Factor Score: 4 Thrombosis Risk Factor Assessment Level: Moderate Risk Assessment and Plan Assessment: Atrial fibrillation with rapid ventricular rate Chronic atrial fibrillation on anticoagulation with Coumadin Supratherapeutic INR level Coronary artery disease with history of coronary artery bypass graft Ischemic cardio myopathy ejection fraction 30-35% as per echocardiogram on 04/23 Osteoarthritis of multiple joints Status post left total hip arthroplasty. Discharge on 04/25/2018 BPH Mild cognitive impairment Plan: Patient will be continued on increased dose of metoprolol 50 mg 3 times a day as per cardiology recommendations. Her Cardizem drip has been reported off at this time. INR came down to 3.9 today. Continue to hold Coumadin. Current with home medications and further recommendations based on the clinical course. PTOT will be consulted and possible transfer back to rehab in 1-2 days. Prognosis is guarded Time with Patient: Greater than 30
[2018-04-26] MEDS: MENTHOL-ZINC OXIDE OINT 113 GM TUBE TOPICAL SCH ×2 (14:37→21:20)
[2018-04-27] MEDS: DILTIAZEM 50 MG in SODIUM CHLORIDE 0.9% 40 ML IV SCH ×3 (03:31→21:14)
[2018-04-27] MEDS: FERROUS SULFATE 325 MG TAB PO SCH (08:11)
[2018-04-27] MEDS: ATORVASTATIN 10 MG TAB PO SCH (08:11)
[2018-04-27] MEDS: ASPIRIN 325 MG TAB PO SCH (08:11)
[2018-04-27] MEDS: FINASTERIDE 5 MG TAB PO SCH (08:12)
[2018-04-27] MEDS: SENNOSIDES 8.6 MG TAB PO SCH ×2 (08:12→21:24)
[2018-04-27] MEDS: FUROSEMIDE 20 MG TAB PO SCH (08:12)
[2018-04-27] MEDS: METOPROLOL TARTRATE 50 MG TAB PO SCH (08:12)
[2018-04-27] MEDS: MULTIVITAMINS, THERA 1 EACH TAB PO SCH (08:13)
[2018-04-27] MEDS: TAMSULOSIN 0.4 MG CAP.ER.24H PO SCH (08:13)
[2018-04-27] MEDS: MENTHOL-ZINC OXIDE OINT 113 GM TUBE TOPICAL SCH ×2 (08:20→21:24)
[2018-04-27 09:21] LABS: INR 2.2 (<1.2); Prothrombin Time 19.5 sec (9.0-12.0)
[2018-04-27 09:32] LABS: Potassium 4.3 mmol/L (3.5-5.1)
[2018-04-27 10:07] LABS: Basophils % (A) 0 %; Eosinophils % (A) 0 %; HCT 25.7 % (39.0-53.0); HGB 8.3 gm/dL (13.0-17.5); Hypochromasia Slight; Lymphocytes # (A) 2.7 k/uL (1.0-4.8); Lymphocytes % (A) 24 %; MCH 31.9 pg (25.0-35.0); MCHC 32.3 g/dL (31.0-37.0); MCV 98.9 fL (80.0-100.0); Macrocytosis Slight; Mean Platelet Volume 8.5; Monocytes # (A) 0.3 k/uL (0-1.0); Monocytes % (A) 3 %; Neutrophils # (A) 7.9 k/uL (1.3-7.7); Neutrophils % (A) 71 %; Platelet Count 202 k/uL (150-450); RDW 15.3 % (11.5-15.5); WBC 11.1 k/uL (3.8-10.6)
[2018-04-27 11:32] VITALS: RESP 18
--- NOTE | 2018-04-27 14:14 | P.PN ---
Subjective Progress Note Date: 04/27/18 This a pleasant 87-year-old gentleman follows with Dr. Romo in the office. He has known history significant for coronary artery disease, prior CABG, chronic atrial fibrillation on oral anticoagulation with Coumadin, congestive heart failure. Was recently discharged from the hospital after being admitted with hip fracture at which time he underwent left hip surgery. He was discharged in stable medical condition. He presented to the hospital because he was not feeling well. Was feeling quite weak. In the emergency department the patient was found to be in atrial fibrillation with rapid ventricular response and he was admitted for further evaluation and treatment. He continues to be in atrial fibrillation with mostly controlled ventricular response and some tachycardia with exertion. Recent echocardiogram showed severe cardiomyopathy with an ejection fraction around 35% with severe tricuspid regurgitation and moderate pulmonary hypertension. He was initially initiated on Cardizem drip which has been discontinued. He remains on metoprolol 50 mg by mouth 3 times a day. INR on admission was 6.2 and Coumadin has been on hold. Upon examination, patient is sitting up in a chair. He tolerated activity well. Denies any complaints of chest discomfort, palpitations, shortness of breath, dizziness or lightheadedness. Objective - Vital Signs Vital signs: Vital Signs Temp 96.3 F L 04/27/18 11:10 Pulse 97 04/27/18 11:10 Resp 18 04/27/18 11:10 BP 104/59 04/27/18 11:10 Pulse Ox 94 L 04/27/18 11:10 Intake & Output 04/26/18 04/27/18 04/27/18 18:59 06:59 18:59 Intake Total 360 170 Output Total 300 700 Balance 60 -530 Weight 59.9 kg Intake: Intake, IV Titration 50 Amount Diltiazem 50 mg In Sodium 50 Chloride 0.9% 40 ml @ 5 MG/HR 5 mls/hr IV .Q10H [facility] Rx#:[id number] Oral 360 120 Output: Urine 300 700 Other: Voiding Method Bedside Commode Bedside Commode # Voids 2 2 # Bowel Movements 0 - Exam PHYSICAL EXAMINATION: HEENT: Head is atraumatic, normocephalic. Pupils equal, round. Neck is supple. There is no elevated jugular venous pressure. HEART EXAMINATION: Heart sounds irregularly irregular, S1 and S2 with a systolic murmur. CHEST EXAMINATION: Lungs are clear to auscultation and precussion. No chest wall tenderness is noted on palpation or with deep breathing. ABDOMEN: Soft, nontender. Bowel sounds are heard. No organomegaly noted. EXTREMITIES: 2+ peripheral pulses with evidence of 1+ peripheral edema left greater than right and no calf tenderness noted. NEUROLOGIC patient is awake and alert. . - Labs CBC & Chem 7: 04/27/18 09:04 04/27/18 09:04 Labs: Abnormal Lab Results - Last 24 Hours (Table) 04/27/18 04/27/18 04/27/18 Range/Units 09:04 09:04 09:04 WBC 11.1 H (3.8-10.6) k/uL RBC 2.60 L (4.30-5.90) m/uL Hgb 8.3 L (13.0-17.5) gm/dL Hct 25.7 L (39.0-53.0) % Neutrophils # 7.9 H (1.3-7.7) k/uL PT 19.5 H (9.0-12.0) sec INR 2.2 H (<1.2) Sodium 132 L (137-145) mmol/L Carbon Dioxide 19 L (22-30) mmol/L BUN 49 H (9-20) mg/dL Glucose 122 H (74-99) mg/dL Calcium 8.0 L (8.4-10.2) mg/dL Assessment and Plan Assessment: #1 A. fib with RVR. #2 known chronic atrial fibrillation #3 CAD and status post CABG #4 severe ischemic cardiomyopathy #5 chronic systolic congestive heart failure Plan: From cardiology's perspective, we will increase metoprolol to 750mg by mouth 3 times a day. We will resume Coumadin as usual home dose of 2.5 mg 5 days a week and 3.75 mg 2 days a week. Continue to monitor INR closely to keep between 2 and 3. We'll continue to monitor the patient provide further recommendations accordingly. 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 Patient was seen and examined.
[2018-04-27 14:56] VITALS: BMI 19.5
[2018-04-27] MEDS: METOPROLOL TARTRATE 25 MG TAB PO SCH ×2 (16:29→21:25)
[2018-04-27] MEDS ORDERED: WARFARIN 2.5 MG TAB PO SCH (18:00)
--- NOTE | 2018-04-27 18:43 | P.PN ---
Subjective Progress Note Date: 04/27/18 Progress note being dictated for Dr. Charles. Interval history:Patient is a 87-year-old male with a known history of coronary artery disease status post CABG, chronic atrial fibrillation on anticoagulation with Coumadin and CHF with ejection fraction 30-35% as per echocardiogram done on 04/23/2018 and with severe tricuspid regurgitation and moderate pulmonary hypertension was discharged from hospital on 04/25/2018 after left total hip arthroplasty. Patient was discharged to infection care facility. Patient also found have supratherapeutic INR level. Upon reaching the facility patient was found to have tachycardia in the patient had EKG done in the ER showed A. fib with RVR with heart rate greater than 1:30. Patient was started on Cardizem drip. Patient was placed on increased dose of metoprolol 50 mg twice a day during previous admission. INR was also elevated at 6.1. Currently heart rate is better controlled now. Cardiology was consulted. Patient was also complaining of left lower extremity swelling which is improved now. Chest x-ray showed chronic changes and cardiomegaly with new small pleural effusion and associated left basilar atelectasis and infiltrate. Troponin 0.051 Review of Systems Constitutional: Patient denies any fever or chills . No generalized weakness or weight loss. Abdomen: Patient denied nausea vomiting and diarrhea and abdominal pain. Cardiovascular: Patient denies any chest pain or short of breath no palpitations. Respiratory: patient denied any cough is from production. No shortness of breath Neurologic: Patient denied any numbness or tingling headache. Musculoskeletal: Patient denies any complaints of joint swelling or deformity. Skin: Negative Psychiatric: Negative Endocrine: No heat or cold intolerance. No recent weight gain. Genitourinary: No dysuria or hematuria. All other 14 point ROS negative except the above 04/27/2018 telemetry A. fib with controlled ventricular rate .Cardizem drip weaned off. Metoprolol increased. Coumadin on hold, INR down to 2.2. BUN 49, creatinine 0.97. Sodium 132. Hemoglobin decreased to 8.3. Slightly agitated, mild delirium. Objective - Vital Signs Vital signs: Vital Signs Temp 96.2 F L 04/27/18 15:00 Pulse 82 04/27/18 15:00 Resp 18 04/27/18 15:00 BP 123/61 04/27/18 15:00 Pulse Ox 98 04/27/18 15:00 Intake & Output 04/26/18 04/27/18 04/27/18 18:59 06:59 18:59 Intake Total 360 290 Output Total 300 901 Balance 60 -611 Weight 59.9 kg 59.9 kg Intake: Intake, IV Titration 50 Amount Diltiazem 50 mg In Sodium 50 Chloride 0.9% 40 ml @ 5 MG/HR 5 mls/hr IV .Q10H [facility] Rx#:[id number] Oral 360 240 Output: Urine 300 900 Stool 1 Other: Voiding Method Bedside Commode Bedside Commode # Voids 2 2 # Bowel Movements 0 - Exam Patient is sitting up in the bed comfortably, no acute distress, awake alert and oriented. Mild confusion. HEENT: Normocephalic. Neck is supple. Pupils reactive. Nostrils clear. Oral cavity is moist. Neck reveals no JVD, carotid bruits, or thyromegaly. CHEST EXAMINATION: Trachea is central. Symmetrical expansion. Left basilar crackles. Lung mederos clear to auscultation and percussion. CARDIAC: Normal S1, S2 with no gallops. Systolic murmur ABDOMEN: Soft. Bowel sounds normal. No organomegaly. No abdominal bruits. Extremities: 1+ edema. Left lower extremity swelling improved. No clubbing or cyanosis Neurologically awake, alert, oriented x2 with well-coordinated movements. Underlying cognitive impairment. No focal deficits noted Psychiatric: Coperative. Nonsuicidal Musculoskeletal: No joint swelling or deformity. Left hip surgical site intact. Normal range of motion. - Labs CBC & Chem 7: 04/27/18 09:04 04/27/18 09:04 Labs: Abnormal Lab Results - Last 24 Hours (Table) 04/27/18 04/27/18 04/27/18 Range/Units 09:04 09:04 09:04 WBC 11.1 H (3.8-10.6) k/uL RBC 2.60 L (4.30-5.90) m/uL Hgb 8.3 L (13.0-17.5) gm/dL Hct 25.7 L (39.0-53.0) % Neutrophils # 7.9 H (1.3-7.7) k/uL PT 19.5 H (9.0-12.0) sec INR 2.2 H (<1.2) Sodium 132 L (137-145) mmol/L Carbon Dioxide 19 L (22-30) mmol/L BUN 49 H (9-20) mg/dL Glucose 122 H (74-99) mg/dL Calcium 8.0 L (8.4-10.2) mg/dL Assessment and Plan Assessment: Atrial fibrillation with rapid ventricular rate Chronic atrial fibrillation on anticoagulation with Coumadin Supratherapeutic INR level Coronary artery disease with history of coronary artery bypass graft Ischemic cardio myopathy ejection fraction 30-35% as per echocardiogram on 04/23 Osteoarthritis of multiple joints Status post left total hip arthroplasty. Discharge on 04/25/2018 BPH Mild cognitive impairment Acute metabolic encephalopathy, multifactorial, including sleep deprivation, hospital stay, Plan: Continue on current medication regime ,monitoring and symptomatic treatment. Antiarrhythmics, anticoagulation as per cardiology. "Chopped Diet". Close monitoring of renal function, hemoglobin with repeat labs ordered for a.m. Daily PT INR. Prognosis guarded given multiple complex medical issues. PT /OT. at bedside, updated on plan a care, verbalized understanding and agreement with. The impression and plan of care has been dictated as directed. : I performed a history and examination of this patient, discussed the same with the dictator. I agree with the dictator's note ,documented as a scribe. Any additional findings or plans will be noted.
[2018-04-27] MEDS: LORazepam 0.5 MG TAB PO SCH (21:24)
[2018-04-27] MEDS: MIRTAZAPINE 15 MG TAB PO SCH (21:24)
[2018-04-28 06:30] VITALS: PULSE 107
[2018-04-28 06:45] LABS: INR 1.9 (<1.2); Prothrombin Time 17.6 sec (9.0-12.0)
[2018-04-28 06:49] LABS: Anisocytosis Slight; HCT 27.1 % (39.0-53.0); HGB 8.6 gm/dL (13.0-17.5); Hypochromasia Slight; MCH 31.7 pg (25.0-35.0); MCHC 31.6 g/dL (31.0-37.0); Macrocytosis Slight; Mean Platelet Volume 8.4; Platelet Count 247 k/uL (150-450); Poikilocytosis Slight; RBC 2.71 m/uL (4.30-5.90); RDW 16.5 % (11.5-15.5); WBC 12.6 k/uL (3.8-10.6)
[2018-04-28 06:50] LABS: Calcium 8.2 mg/dL (8.4-10.2); Potassium 4.7 mmol/L (3.5-5.1)
[2018-04-28] MEDS: FERROUS SULFATE 325 MG TAB PO SCH (07:58)
[2018-04-28] MEDS: TAMSULOSIN 0.4 MG CAP.ER.24H PO SCH (07:58)
[2018-04-28] MEDS: MULTIVITAMINS, THERA 1 EACH TAB PO SCH (07:58)
[2018-04-28] MEDS: SENNOSIDES 8.6 MG TAB PO SCH (07:58)
[2018-04-28] MEDS: ATORVASTATIN 10 MG TAB PO SCH (07:58)
[2018-04-28] MEDS: FINASTERIDE 5 MG TAB PO SCH (07:58)
[2018-04-28] MEDS: MENTHOL-ZINC OXIDE OINT 113 GM TUBE TOPICAL SCH (07:59)
--- NOTE | 2018-04-28 08:37 | P.PN ---
Subjective Progress Note Date: 04/28/18 Principal diagnosis: Atrial fibrillation with RVR This is a pleasant 87-year-old gentleman with a past medical history significant for coronary artery disease and prior coronary artery that is grafting, chronic atrial fibrillation on oral anticoagulation with Coumadin, as well as history of CHF, was discharged from the hospital yesterday after he was admitted with hip fracture and underwent left hip surgery. He was discharged in stable medical condition. He presented to the hospital because he was not feeling well. He just felt weak. No specific symptoms of chest pain or chest discomfort, dizziness or lightheadedness, heart racing or heart fluttering, or syncope. In the ER the patient was found to be in A. fib with RVR and he was admitted for further evaluation and management. He continues to be in atrial fibrillation with heart rate around 130 bpm. He is on Cardizem at 5 mg per hour. The INR when he presented to the hospital was around 6 and without have an INR from today. Currently the Coumadin is on hold. When he was admitted to the hospital for the left hip surgery underwent an echocardiogram and that revealed severe cardiomyopathy with an ejection fraction around 35% with severe tricuspid regurgitation and moderate pulmonary hypertension. On follow-up with the patient today, he is feeling overall better. He is frail overall. The heart rate continues to be around 100. The pressure has been marginally low. Objective - Vital Signs Vital signs: Vital Signs Temp 97.6 F 04/28/18 08:02 Pulse 107 H 04/28/18 08:02 Resp 18 04/28/18 08:02 BP 96/51 04/28/18 08:02 Pulse Ox 96 04/28/18 08:02 Intake & Output 04/27/18 04/28/18 04/28/18 18:59 06:59 18:59 Intake Total 290 20 10 Output Total 901 303 201 Balance -611 -283 -191 Weight 59.9 kg 59.5 kg Intake: IV 20 10 Invasive Line 2 20 10 Intake, IV Titration 50 Amount Diltiazem 50 mg In Sodium 50 Chloride 0.9% 40 ml @ 5 MG/HR 5 mls/hr IV .Q10H [facility] Rx#:[id number] Oral 240 Output: Urine 900 300 200 Stool 1 3 1 Other: Voiding Method Bedside Commode Bedside Commode Bedside Commode - Constitutional General appearance: Present: no acute distress - Respiratory Respiratory: bilateral: diminished - Cardiovascular Rhythm: irregularly irregular Heart sounds: normal: S1, S2 - Labs CBC & Chem 7: 04/28/18 05:29 18 05:29 Labs: Abnormal Lab Results - Last 24 Hours (Table) 04/27/18 04/27/18 04/27/18 Range/Units 09:04 09:04 09:04 WBC 11.1 H (3.8-10.6) k/uL RBC 2.60 L (4.30-5.90) m/uL Hgb 8.3 L (13.0-17.5) gm/dL Hct 25.7 L (39.0-53.0) % RDW (11.5-15.5) % Neutrophils # 7.9 H (1.3-7.7) k/uL PT 19.5 H (9.0-12.0) sec INR 2.2 H (<1.2) Sodium 132 L (137-145) mmol/L Carbon Dioxide 19 L (22-30) mmol/L BUN 49 H (9-20) mg/dL Glucose 122 H (74-99) mg/dL Calcium 8.0 L (8.4-10.2) mg/dL 04/28/1818 04/28/18 Range/Units 05:29 05:29 05:29 WBC 12.6 H (3.8-10.6) k/uL RBC 2.71 L (4.30-5.90) m/uL Hgb 8.6 L (13.0-17.5) gm/dL Hct 27.1 L (39.0-53.0) % RDW 16.5 H (11.5-15.5) % Neutrophils # (1.3-7.7) k/uL PT 17.6 H (9.0-12.0) sec INR 1.9 H (<1.2) Sodium 133 L (137-145) mmol/L Carbon Dioxide 21 L (22-30) mmol/L BUN 44 H (9-20) mg/dL Glucose 136 H (74-99) mg/dL Calcium 8.2 L (8.4-10.2) mg/dL Assessment and Plan Assessment: Assessment #1 A. fib with RVR. #2 known chronic atrial fibrillation #3 CAD and status post CABG #4 severe ischemic cardiomyopathy #5 multiple comorbid conditions Plan #1 continue the current dose of metoprolol #2 continue oral anticoagulation with Coumadin
[2018-04-28 08:49] LABS: Lymphocytes # (M) 0.76 k/uL (1.0-4.8); Monocytes # (M) 0.13 k/uL (0-1.0); Neutrophils # (M) 11.72 k/uL (1.3-7.7); Neutrophils % (M) 93 %; Nucleated Red Blood Cells 0 /100 WBC (0-0); Total Cells Counted 100
[2018-04-28] MEDS ORDERED: ASPIRIN 81 MG PO SCH (09:00)
[2018-04-28] MEDS: METOPROLOL TARTRATE 25 MG TAB PO SCH (09:37)
[2018-04-28] MEDS: DILTIAZEM 50 MG in SODIUM CHLORIDE 0.9% 40 ML IV SCH (09:37)
[2018-04-28 11:55] VITALS: BP 101/57; TEMP 97.8
--- NOTE | 2018-04-28 12:31 | P.DS ---
Providers Date of admission: 04/25/18 22:12 Expected date of discharge: 04/28/18 Attending physician: Buffy Charles Final Diagnoses: Atrial fibrillation with rapid ventricular rate Chronic atrial fibrillation on anticoagulation with Coumadin Supratherapeutic INR level Coronary artery disease with history of coronary artery bypass graft Ischemic cardio myopathy ejection fraction 30-35% as per echocardiogram on 04/23 Osteoarthritis of multiple joints Status post left total hip arthroplasty. Discharge on 04/25/2018 BPH Mild cognitive impairment Acute metabolic encephalopathy, multifactorial, including sleep deprivation, hospital stay, Hyponatremia,improving, decreased oral intake in a patient with dysphasia, BMS Pending. Hospital course:Patient is a 87-year-old male with a known history of coronary artery disease status post CABG, chronic atrial fibrillation on anticoagulation with Coumadin and CHF with ejection fraction 30-35% as per echocardiogram done on 04/23/2018 and with severe tricuspid regurgitation and moderate pulmonary hypertension was discharged from hospital on 04/25/2018 after left total hip arthroplasty. Patient was discharged to infection care facility. Patient also found have supratherapeutic INR level. Upon reaching the facility patient was found to have tachycardia in the patient had EKG done in the ER showed A. fib with RVR with heart rate greater than 1:30. Patient was started on Cardizem drip. Patient was placed on increased dose of metoprolol 50 mg twice a day during previous admission. INR was also elevated at 6.1. Currently heart rate is better controlled now. Cardiology was consulted. Patient was also complaining of left lower extremity swelling which is improved now. Chest x-ray showed chronic changes and cardiomegaly with new small pleural effusion and associated left basilar atelectasis and infiltrate. Troponin 0.051 Evaluated by cardiology, antiarrhythmics adjusted with metoprolol increased. INR currently 1.9. Difficulty swallowing, MBS pending. Telemetry atrial fibrillation with heart rate 100. Borderline hypotension. Patient has been cleared by cardiology for discharge to subacute.. Patient is being discharged to [facility] subacute rehab in a stable condition with guarded prognosis, pending MBS results. Exam Patient is sitting up in the bed comfortably, no acute distress, awake alert and oriented. Mild confusion. CHEST EXAMINATION: Trachea is central. Symmetrical expansion. Left basilar crackles. Lung mederos clear to auscultation and percussion. CARDIAC: Normal S1, S2 with no gallops. Systolic murmur ABDOMEN: Soft. Bowel sounds normal. No organomegaly. No abdominal bruits. Neurologically awake, alert, oriented x2 with well-coordinated movements. Underlying cognitive impairment. No focal deficits noted Musculoskeletal: No joint swelling or deformity. Left hip surgical site intact. Normal range of motion. The impression and plan of care has been dictated as directed. : I performed a history and examination of this patient, discussed the same with the dictator. I agree with the dictator's note ,documented as a scribe. Any additional findings or plans will be noted. Time taken: 35 minutes Consults: 04/25/18 22:05 Consult Physician Routine Consulting Provider: Don Brandt Consult Reason/Comments: Atrial fibrillation with rapid ventricular rate Do you want consulting provider notified?: Yes Primary care physician: Larry Foley Patient Condition at Discharge: Stable Plan - Discharge Summary New Discharge Prescriptions: New Metoprolol Tartrate [Lopressor] 75 mg PO TID tab Aspirin 81 mg PO DAILY chew traMADol HCl [Ultram] 50 mg PO Q6H PRN #12 tab PRN Reason: Pain Continue Tamsulosin HCl [Flomax] 0.4 mg PO DAILY Naphazoline HCl/Glycerin [Clear Eyes Max Redness Rlf Drp] 1 drop BOTH EYES BID PRN PRN Reason: Dry Eye(S) Ascorbic Acid [Vitamin C] 500 mg PO DAILY Multivitamin [Men's Multi-Vitamin] 1 tab PO DAILY Mirtazapine [Remeron] 15 mg PO HS Finasteride [Proscar] 5 mg PO DAILY Furosemide [Lasix] 20 mg PO DAILY Ferrous Sulfate [Iron (65 MG Elemental)] 325 mg PO DAILY Atorvastatin [Lipitor] 10 mg PO DAILY Acetaminophen [Tylenol] 500 mg PO Q8H PRN PRN Reason: Pain Menthol/Zinc Oxide [Calmoseptine Ointment] 1 applic TOPICAL BID Sennosides [Senokot] 1 tab PO BID #60 tablet Changed Warfarin [Coumadin] 2.5 mg PO DAILY #0 Discontinued Warfarin [Coumadin] 3.75 mg PO MOWEFR Metolazone [Zaroxolyn] 2.5 mg PO TUFR PRN PRN Reason: weight gain of 2-5# traMADol HCl [Ultram] 50 mg PO Q6H PRN #90 tab PRN Reason: Pain LORazepam [Ativan] 0.5 mg PO HS #7 tab Metoprolol Succinate (ER) [Toprol Xl] 25 mg PO DAILY Discharge Medication List Ascorbic Acid [Vitamin C] 500 mg PO DAILY 07/15/16 [History] Multivitamin [Men's Multi-Vitamin] 1 tab PO DAILY 07/15/16 [History] Naphazoline HCl/Glycerin [Clear Eyes Max Redness Rlf Drp] 1 drop BOTH EYES BID PRN 07/15/16 [History] Tamsulosin HCl [Flomax] 0.4 mg PO DAILY 07/15/16 [History] Acetaminophen [Tylenol] 500 mg PO Q8H PRN 04/07/18 [History] Atorvastatin [Lipitor] 10 mg PO DAILY 04/07/18 [History] Ferrous Sulfate [Iron (65 MG Elemental)] 325 mg PO DAILY 04/07/18 [History] Finasteride [Proscar] 5 mg PO DAILY 04/07/18 [History] Furosemide [Lasix] 20 mg PO DAILY 04/07/18 [History] Mirtazapine [Remeron] 15 mg PO HS 04/07/18 [History] Menthol/Zinc Oxide [Calmoseptine Ointment] 1 applic TOPICAL BID 04/10/18 [ History] Sennosides [Senokot] 1 tab PO BID #60 tablet 04/23/18 [Rx] Aspirin 81 mg PO DAILY chew 04/28/18 [Rx] Metoprolol Tartrate [Lopressor] 75 mg PO TID tab 04/28/18 [Rx] Warfarin [Coumadin] 2.5 mg PO DAILY #0 04/28/18 [Rx] traMADol HCl [Ultram] 50 mg PO Q6H PRN #12 tab 04/28/18 [Rx] Follow up Appointment(s)/Referral(s): Larry Foley MD [Primary Care Provider] - 1 Week (after dc from rehab) Activity/Diet/Wound Care/Special Instructions: Aleksandra PIERCE
--- NOTE | 2018-04-28 13:40 | FL ---
MODIFIED SWALLOW / DEGLUTITION STUDY EXAMINATION TYPE: FL barium swallow w video DATE OF EXAM: 04/28/2018 CLINICAL HISTORY: 87-year-old male with trouble swallowing and cough. Trouble with all consistencies at the bedside. Rule out aspiration. TECHNIQUE: Deglutition study is performed utilizing thin liquid and barium thick applesauce. Total fluoroscopy time: 1 minute 28 seconds. Total images: None. Real-time fluoroscopy support was provided to speech pathology. COMPARISON: None. FINDINGS: There is an incomplete absent swallow with thin liquid by spoon as well as puree consistency by spoon . There is gradual drip into the vallecula and piriform sinuses with ineffectual swallow. Significant piriform sinus residuals with pureed which does not clear despite multiple attempts at swallowing. The exam was terminated. IMPRESSION: Exam terminated after testing with thin liquids and purees. There is incomplete to absent swallow. Please refer to speech therapist notes for further details if necessary.
--- NOTE | 2018-04-28 14:12 | CDI ---
Last Revision, September 2017 Documentation Clarification Form Date: 04/28/18 From: Lisa Willoughby Admit Date: 04/25/2018 10:12:00 PM Patient Name: Sandip Priest Visit Number: [id number] ATTENTION: The Clinical Documentation Specialists (CDI) and [facility] Coding Staff appreciate your assistance in clarifying documentation. Please respond to the clarification below the line at the bottom and electronically sign. The CDI & [facility] Coding staff will review the response and follow-up if needed. Please note: Queries are made part of the Legal Health Record. If you have any questions, please contact the author of this message via ITS. Dr. Buffy Mcmahon, Please render your opinion on the patients nutritional status with RD noting poor nutritional intake. History/Risk Factors: Cardiology describes patient as frail. RD notes patient is emaciated, appearing underweight, with stage 2 pressure ulcer on right buttock. Metabolic encephalopathy and hyponatremia are documented. Status post total hip replacement, mild cognitive impairment, dysphagia, severe ischemic cardiomyopathy Clinical Indicators: Pressure ulcers, Pending swallow eval. Labs: Albumin 3.2 Current BMI: 19.4 Insufficient energy intake: Per RD poor intake Weight Loss: no recent weight loss per H&P Treatment: Dietary Consult Supplements of: Ensure Enlive TID, Vitamin and iron Lab monitoring Medications: Remeron, Statin Healthy Heart diet In your professional opinion, can you please render your opinion on the patients nutritional status. Mild Protein-Calorie Malnutrition Moderate Protein-Calorie Malnutrition Severe Protein-Calorie Malnutrition Malnutrition, Unspecified Other condition, please specify Unable to determine Please continue to document in your progress notes, under the line below and/or in the discharge summary in order to capture severity of illness and risk of mortality. Include clinical findings that support your diagnosis. MTDD
--- NOTE | 2018-04-28 14:40 | CDI ---
Last Revision, September 2017 Documentation Clarification Form Date: 04/28/18 From: Lisa Willoughby RN Admit Date: 04/25/2018 10:12:00 PM Patient Name: Sandip Priest Visit Number: [id number] ATTENTION: The Clinical Documentation Specialists (CDI) and [facility] Coding Staff appreciate your assistance in clarifying documentation. Please respond to the clarification below the line at the bottom and electronically sign. The CDI & [facility] Coding staff will review the response and follow-up if needed. Please note: Queries are made part of the Legal Health Record. If you have any questions, please contact the author of this message via ITS. Dr. Buffy Mcmahon, Please render your opinion on documentation of a Stage 2 buttocks and stage 2 coccyx pressure ulcer documented in the RD and Nursing notes. History/Risk Factors: Presenting from ECF with A-Fib and rvr. status post hip replacement performed on 04/20. Hx. HTN, A-fib, severe ischemic cardiomyopathy Clinical Indicators: RD and Nursing documentation of pressure ulcer Location: Right side Buttock and coccyx Wound description: 04/25 wound assessment notes stage 2 pressure injury at coccyx and right buttock. 04/27 rt. Buttocks 9cm x 5 cm by 0.25, moist, with scant serosanguineous drainage. Treatment: Foam dressing, Nutritional supplements Elements for accurate and compliant documentation of an ulcer: The location/laterality of the ulcer Etiology (decubitus/pressure, diabetic, PVD) Stage I-IV, Unstageable, Suspected Deep Tissue Injury (To the deepest stage) If the ulcer was present at admission (POA) or occurred after admission In your professional opinion, can you please clarify the diagnosis, location, laterality and whether present on admission (POA): Stage 2Pressure/Decubitus Ulcer right buttocks and coccyx POA? Stage 2Pressure/Decubitus Ulcer right buttocks and coccyx not POA? Unstagable pressure ulcers Other condition, please specify Unable to determine Please continue to document in your progress notes, under the line below and/or in the discharge summary in order to capture severity of illness and risk of mortality. Include clinical findings that support your diagnosis. MTDD
[2018-04-28] MEDS ORDERED: WARFARIN 2.5 MG TAB PO SCH (18:00)
== END 2018-04-28 15:27 | DRG 308 ==
LOC: EC 19:53 → 6SEL 22:12
PROVIDERS: ADMIT Internal Medicine; ATTEND Internal Medicine
DX: I48.2 Chronic atrial fibrillation (principal); G93.41 Metabolic encephalopathy; E87.1 Hypo-osmolality and hyponatremia; I50.22 Chronic systolic (congestive) heart failure; E44.1 Mild protein-calorie malnutrition; I25.2 Old myocardial infarction; I25.10 Atherosclerotic heart disease of native coronary artery without angina pectoris; E78.5 Hyperlipidemia, unspecified; I11.0 Hypertensive heart disease with heart failure; I25.5 Ischemic cardiomyopathy; G31.84 Mild cognitive impairment of uncertain or unknown etiology; I27.20 Pulmonary hypertension, unspecified; I07.1 Rheumatic tricuspid insufficiency; N40.0 Benign prostatic hyperplasia without lower urinary tract symptoms; L89.152 Pressure ulcer of sacral region, stage 2; E86.1 Hypovolemia; L89.312 Pressure ulcer of right buttock, stage 2; I95.89 Other hypotension; Z72.820 Sleep deprivation; Z95.1 Presence of aortocoronary bypass graft; Z79.01 Long term (current) use of anticoagulants; Z79.899 Other long term (current) drug therapy
CPT/HCPCS: 36415; 71046; 74230; 80048; 80053; 80061; 82550; 82553; 83735; 84484; 85025; 85610; 85730; 93005; 96374; 99285